=== PATIENT | female | born 1995 | race Caucasian/White ===

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

== ENCOUNTER 2017-12-10 20:06 | Inpatient (IN) ==
[2017-12-10] MEDS ORDERED: Naloxone 0.4 MG/ML INJ IVP ONE (21:19)
[2017-12-10] MEDS ORDERED: Td (TENIVAC) Vaccine 0.5 ML VIAL IM ONE (21:21)
[2017-12-10] MEDS ORDERED: 0.9 % Sodium Chloride 1,000 ML IVC ONE (21:21)
[2017-12-10 22:03] LABS: Basophils # 0.1 K/mcL (0.0-0.2); Basophils % 0.5 %; Eosinophils # 0.2 K/mcL (0.0-0.6); Eosinophils % 2.2 %; Hematocrit 41.7 % (35.3-44.9); Immature Granulocytes % 0.3 % (0-4); Lymphocytes # 2.9 K/mcL (0.6-4.6); Lymphocytes % 31.1 %; Mean Corpuscular HGB Conc 33.6 g/dL (31.6-35.5); Mean Corpuscular Hemoglobin 29.8 pg (28.0-33.3); Mean Corpuscular Volume 88.7 fL (83.0-100.0); Mean Platelet Volume 10.3 fL (9.4-12.4); Monocytes # 0.7 K/mcL (0.0-1.3); Monocytes % 7.8 %; Neutrophils # 5.4 K/mcL (1.6-8.9); Platelet Count 253 K/mcL (140-400); Red Cell Distribution Width 12.4 % (11.5-14.5); Segmented Neutrophils % 58.1 %
[2017-12-10 22:17] LABS: Bilirubin,Urine Small (Negative); Blood,Urine Large (Negative); Clarity,Urine Turbid (Clear); Color,Urine Dark Yellow (Yellow); Glucose,Urine (UA) Normal (Normal); Ketones,Urine Negative (Negative); Leukocyte Esterase,Urine Small (Negative); Nitrite,Urine Negative (Negative); Protein,Urine 30 mg/dL (Neg-Trace); Specific Gravity,Urine 1.025 (1.010-1.025); Urobilinogen,Urine Normal (Normal)
[2017-12-10 22:19] LABS: Amphetamine Screen,Urine Positive ng/mL (Cutoff=1000); Bacteria,Urine Many per hpf (None-Few); Barbiturate Screen,Urine Negative ng/mL (Cutoff=200); Benzodiazepines Screen,Urine Positive ng/mL (Cutoff=200); Cannabinoid Screen,Urine Negative ng/mL (Cutoff = 50); Cocaine Screen,Urine Positive ng/mL (Cutoff= 300); Opiate Screen,Urine Negative ng/mL (Cutoff=300); Phencyclidine Screen,Urine Negative ng/mL (Cutoff=25); Squamous Epithelial Cell,Urine Many per lpf (None-Few); WBC,Urine 30-50 per hpf (0-3)
[2017-12-10 22:21] LABS: Acetaminophen < 1.0 mcg/mL (10-30); Ethanol < 10 mg/dL (0-10); Salicylate < 5.0 mg/dL (15.0-30.0)
[2017-12-10 22:26] LABS: Alanine Aminotransferase 9 Units/L (7-52); Albumin/Globulin Ratio 1.9 (1.1-2.2); Alkaline Phosphatase 100 Units/L (34-104); Aspartate Amino Transferase 20 Units/L (13-39); BUN/Creatinine Ratio 14 (6-26); Bilirubin,Direct 0.1 mg/dL (0.0-0.2); Bilirubin,Indirect 0.3 mg/dL (0.0-1.2); Bilirubin,Total 0.4 mg/dL (0.3-1.0); Blood Urea Nitrogen 11 mg/dL (6-20); Calcium 9.9 mg/dL (8.6-10.3); Carbon Dioxide 28 mEq/L (23-29); Chloride 104 mEq/L (98-107); Globulin 2.7 g/dL (2.4-3.5); Glucose 103 mg/dL (70-105); Osmolality,Calculated 288 (280-300); Potassium 3.4 mEq/L (3.5-5.1); Sodium 139 mEq/L (136-145); Total Protein 7.7 g/dL (6.4-8.9); eGFR For African Americans > 60 (> 60); eGFR For Non-African Americans > 60 (> 60)
[2017-12-10 22:32] LABS: Hyaline Casts,Urine Few per lpf (None-Few)
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
[2017-12-11] MEDS ORDERED: cefTRIAXone 1,000 MG in Water for inj. (sterile) 20 ML 10 ML IVP STA (00:40)
[2017-12-11] MEDS ORDERED: Ondansetron 4 MG/2 ML VIAL IVP PRN (05:48)
[2017-12-11] MEDS ORDERED: Acetaminophen 325 MG TABLET PO PRN (05:48)
[2017-12-11] MEDS ORDERED: *HR* HYDROcodone/Acet 5/325 mg TABLET PO PRN (05:48)
[2017-12-11] MEDS ORDERED: Naloxone 0.4 MG/ML INJ IVP PRN (05:48)
--- NOTE | 2017-12-11 05:58 | Internal Med History&Physical ---
Date of Encounter: 12/11/17 Time of Encounter: 04:30 Assessment and Plan (1) Acute encephalopathy Current visit: Yes Status: Acute Admit the patient into telemetry she does have acute delirium due to toxic encephalopathy with the polysubstance abuse her urine drug screen came back as positive for cocaine, Benzo's and amphetamine at this point we will put her on telemetry IV hydration strict NPO consult psych in AM social media marketing analyst consulted she is an high-risk patient with all the substance abuse/intoxication, definitely need very close monitoring since patient is high risk for respiratory failure (2) Substance abuse Current visit: Yes Status: Acute (3) Altered mental status Current visit: Yes Status: Acute Qualifiers: Altered mental status type: delirium Qualified Code(s): R41.0 - Disorientation, unspecified (4) UTI (urinary tract infection) Current visit: Yes Status: Acute Reviewed UA - abnormal will start her on Rocephin Qualifiers: Urinary tract infection type: acute cystitis Qualified Code(s): N30.00 - Acute cystitis without hematuria (5) Bipolar disorder Current visit: No Status: Chronic Qualifiers: Active/Remission status: in partial remission Most recent bipolar episode type: depressed Qualified Code(s): F31.75 - Bipolar disorder, in partial remission, most recent episode depressed Internal Medicine - H&P: HPI Chief complaint: Acute delirium Admitted From: Emergency Dept Plans for Post Hospital Care: Home History of present illness: Ms. Brito is a 22 year old female with known PMH of substance abuse, Bipolar, Depression pt was brought into ER by EMS for evaluation of altered mental status. Pt had further evaluation done in the ER, pt UDS came back as positive for Amphetamine, Benzo and Cocaine. Pt also have contusions to the right eye and face. The patient has old bruising throughout her arms and legs and abdomen. Pt is currently sleepy and barely arousable, not providing me any information here on the floor. All the information I have here is reviewed her chart from ER , and talking to ER staff as well as our floor staff. Past Med Surg Social Fam HX - Past Medical History Medical history: no medical history, other Psychiatric history: previous psychiatric hospitalization - Past Surgical History Surgical History: other, appendectomy - Social History Smoking Status: Current every day smoker Smokeless Tobacco Status: No Alcohol use: rarely, recent Drug use: marijuana, other - Additional Family History Additional family history: Unable to obtain due to patient's altered mental status Internal Medicine - H&P: Meds Benztropine [Cogentin] 0.5 mg PO HS #30 tab 07/05/17 [Rx] CarBAMazepine XR [Tegretol Xr] 400 mg PO Q12H #60 07/05/17 [Rx] Citalopram [CeleXA] 30 mg PO DAILY #45 tab 07/05/17 [Rx] risperiDONE [RisperDAL] 2 mg PO HS #60 tab 07/05/17 [Rx] Cephalexin [Keflex] 500 mg PO BID #14 capsule 09/28/17 [Rx] 3 Allergy/AdvReac Type Severity Reaction Status Date / Time No Known Allergies Allergy Verified 09/28/17 16:16 All Systems PM: A 10-system review of systems was performed and is negative for pertinent findings except as documented above in the HPI. Review of systems: All the systems are reviewed everything is benign except the systems and symptoms I mentioned in the history of present illness Unable to perform thorough ROS due to her altered mental status. - Constitutional Vitals: Temp Pulse Resp BP Pulse Ox 98.5 F 89 14 95/60 100 12/11/17 03:25 12/11/17 03:25 12/11/17 03:25 12/11/17 03:25 12/11/17 03:25 General appearance: Absent: cooperative, answers questions appropriately Exam: Sleepy arousal with verbal stimuli however falling asleep right away - Head Additional comments: She does have a small laceration over her right forehead and right upper eyelid with some contusion around it - Neck Neck exam general surgery: Present: supple - Respiratory Respiratory exam: Present: decreased breath sounds. Absent: rales, respiratory distress, rhonchi, wheezes - Cardiovascular Cardiovascular exam: Present: RRR, +S1, +S2. Absent: diastolic murmur, gallop, rubs, systolic murmur - GI/Abdominal GI/Abdominal exam: Present: normal bowel sounds, soft. Absent: rebound, rigid, tenderness - Extremities Exam Extremities exam: Absent: calf tenderness, pedal edema, tenderness Additional comments: She does have some old bruise bennett on her both arms as well as legs - Back Exam Back exam: Absent: CVA tenderness (L), CVA tenderness (R) - Neurological Exam Neurological exam: Present: altered Additional comments: Sleepy... Unable to perform a thorough neurological examination due to her altered mental status - Psychiatric Additional comments: Unable to perform Internal Med - H&P Results - Labs CBC & Chem 7: 12/10/17 21:48 12/10/17 21:48
[2017-12-11] MEDS ORDERED: 0.9 % Sodium Chloride 1,000 ML IVC SCH (06:00)
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
--- NOTE | 2017-12-11 18:33 | Electrocardiograph Report ---
[address] [address] Test Date: 2017-12-10 Pat Name: Debbie Brito Department: 102 Room: 3A11 Gender: F [employer] Dist[employer]: [employer] : 1995 Requested By: Vimal Cantu Order Number: [id number] Reading MD: Natalya Gonzales Measurements Intervals [place] Rate: 93 P: 59 [place]: 123 QRS: 62 QRSD: 94 T: 41 QT: 352 QTc: 403 Interpretive Statements SINUS RHYTHM Electronically Signed On 12-11-2017 18:31:41 EST by Natalya Gonzales
[2017-12-12] MEDS ORDERED: cefTRIAXone 1,000 MG in Water for inj. (sterile) 20 ML 10 ML IVP SCH (01:00)
[2017-12-12 07:05] LABS: BUN/Creatinine Ratio 14 (6-26); Blood Urea Nitrogen 10 mg/dL (6-20); Calcium 8.7 mg/dL (8.6-10.3); Carbon Dioxide 26 mEq/L (23-29); Chloride 108 mEq/L (98-107); Glucose 99 mg/dL (70-105); Osmolality,Calculated 285 (280-300); Potassium 4.1 mEq/L (3.5-5.1); Sodium 138 mEq/L (136-145); eGFR For African Americans > 60 (> 60); eGFR For Non-African Americans > 60 (> 60)
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
[2017-12-12] MEDS ORDERED: FLUARIX QUAD 2017-18 36MOS UP/PF 0.5 ML SYRINGE IM ONE (11:24)
--- NOTE | 2017-12-12 12:51 | Consult Note ---
Date of Encounter: 12/12/17 Time of Encounter: 12:00 Assessment & Recommendation (1) Other recurrent depressive disorders Current visit: Yes Status: Acute (2) Suicide attempt Current visit: Yes Status: Acute Assessment & Recommendation: admit involutnary 1a History of Present Illness Patient: known to practice within the last 3 years Requesting Physician: Diego Lazaro MD Reason for consult: recent overdose, sedation History of present illness: Ms. Brito is a 22 year old female The patient is known to our service and has previous discharges in 2016 both in November and June. In the diagnoses these include major depression recurrent and bipolar depression. 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 She has difficulties and committing to treatment and treatment plans. And has been noncompliant with some treatments. The patient has a risk of overdose if released from the hospital. I went to talk to her about admission to 1 and which she is familiar with. She declined. The nurse and I went to wake her up to try and encourage her to go to one [facility] again she declined. I completed paperwork for emergency hospitalization on 1A today 12/12/2017 CC: Diego Lazaro MD Past Med Surg Social Fam HX - Past Medical History Medical history: no medical history, other - Past Surgical History Surgical History: other, appendectomy - Social History Smoking Status: Current every day smoker Smokeless Tobacco Status: No Alcohol use: rarely, recent Drug use: marijuana, other Medications & Allergies No Known Home Drugs 12/11/17 [History] 3 Allergy/AdvReac Type Severity Reaction Status Date / Time No Known Allergies Allergy Verified 09/28/17 16:16 Review of Systems ROS unobtainable: due to patient condition Mental Status Exam Patient orientation: Yes Person, Yes Time, Yes Place Level of alertness: Sedated, Responds to painful stimuli Patient appearance: Unkempt Behavior: withdrawn Psychomotor activity: Slowed Eye contact: Avoids Eye Contact Mood description: Depressed Affect description: flat Speech pattern: Slowed, Garbled Speech volume: Soft/Quiet Thought process: Slowed Thinking Thought content: Yes Suicidal ideation Patient reliability: Not Reliable Historian Intelligence estimate: Below Average Judgment: Poor Insight: None Results - Vital Signs Vital signs: Temp Pulse Resp BP Pulse Ox 98.6 F 97 15 105/62 96 12/12/17 04:18 12/12/17 04:18 12/12/17 04:18 12/12/17 04:18 12/12/17 04:18 - Labs Labs: Laboratory Last Values WBC 9.2 K/mcL (4.3-11.1) 12/10/17 21:48 RBC 4.70 M/mcL (3.82-4.97) 12/10/17 21:48 Hgb 14.0 g/dL (11.5-15.4) 12/10/17 21:48 Hct 41.7 % (35.3-44.9) 12/10/17 21:48 MCV 88.7 fL (83.0-100.0) 12/10/17 21:48 MCH 29.8 pg (28.0-33.3) 12/10/17 21:48 MCHC 33.6 g/dL (31.6-35.5) 12/10/17 21:48 RDW 12.4 % (11.5-14.5) 12/10/17 21:48 Plt Count 253 K/mcL (140-400) 12/10/17 21:48 MPV 10.3 fL (9.4-12.4) 12/10/17 21:48 Immature Gran % 0.3 % (0-4) 12/10/17 21:48 Seg Neutrophils % 58.1 % 12/10/17 21:48 Lymphocytes % 31.1 % 12/10/17 21:48 Monocytes % 7.8 % 12/10/17 21:48 Eosinophils % 2.2 % 12/10/17 21:48 Basophils % 0.5 % 12/10/17 21:48 Neutrophils # 5.4 K/mcL (1.6-8.9) 12/10/17 21:48 Lymphocytes # 2.9 K/mcL (0.6-4.6) 12/10/17 21:48 Monocytes # 0.7 K/mcL (0.0-1.3) 12/10/17 21:48 Eosinophils # 0.2 K/mcL (0.0-0.6) 12/10/17 21:48 Basophils # 0.1 K/mcL (0.0-0.2) 12/10/17 21:48 Sodium 138 mEq/L (136-145) 12/12/17 06:31 Potassium 4.1 mEq/L (3.5-5.1) 12/12/17 06:31 Chloride 108 mEq/L (98-107) H 12/12/17 06:31 Carbon Dioxide 26 mEq/L (23-29) 12/12/17 06:31 BUN 10 mg/dL (6-20) 12/12/17 06:31 Creatinine 0.73 mg/dL (0.60-1.20) 12/12/17 06:31 Est GFR ( Amer) > 60 (> 60) 12/12/17 06:31 Est GFR (Non-Af Amer) > 60 (> 60) 12/12/17 06:31 BUN/Creatinine Ratio 14 (6-26) 12/12/17 06:31 Glucose 99 mg/dL (70-105) 12/12/17 06:31 POC Glucose 97 (58-89) H 12/11/17 06:37 Calculated Osmolality 285 (280-300) 12/12/17 06:31 Calcium 8.7 mg/dL (8.6-10.3) 12/12/17 06:31 Magnesium 2.0 mg/dL (1.6-2.6) 12/12/17 06:31 Total Bilirubin 0.4 mg/dL (0.3-1.0) 12/10/17 21:48 Direct Bilirubin 0.1 mg/dL (0.0-0.2) 12/10/17 21:48 Indirect Bilirubin 0.3 mg/dL (0.0-1.2) 12/10/17 21:48 AST 20 Units/L (13-39) 12/10/17 21:48 ALT 9 Units/L (7-52) 12/10/17 21:48 Alkaline Phosphatase 100 Units/L (34-104) 12/10/17 21:48 Serum Total Protein 7.7 g/dL (6.4-8.9) 12/10/17 21:48 Albumin 5.0 g/dL (3.5-5.7) 12/10/17 21:48 Globulin 2.7 g/dL (2.4-3.5) 12/10/17 21:48 Albumin/Globulin Ratio 1.9 (1.1-2.2) 12/10/17 21:48 Urine Color Dark Yellow (Yellow) 12/10/17 22:04 Urine Clarity Turbid (Clear) A 12/10/17 22:04 Urine pH 6.0 pH Units (5.0-8.0) 12/10/17 22:04 Ur Specific [place] 1.025 (1.010-1.025) 12/10/17 22:04 Urine Protein 30 mg/dL (Neg-Trace) H 12/10/17 22:04 Urine Glucose (UA) Normal mg/dL (Normal) 12/10/17 22:04 Urine Ketones Negative mg/dL (Negative) 12/10/17 22:04 Urine Blood Large (Negative) H 12/10/17 22:04 Urine Nitrite Negative (Negative) 12/10/17: Urine Bilirubin Small (Negative) H 12/10/17 22:04 Urine Urobilinogen Normal mg/dL (Normal) 12/10/17 22:04 Ur Leukocyte Esterase Small (Negative) H 12/10/17 22:04 Urine Microscopic RBC 3-5 per hpf (0-3) H 12/10/17 22:04 Urine Microscopic WBC 30-50 per hpf (0-3) H 12/10/17 22:04 Ur Squamous Epith Cells Many per lpf (None-Few) H 12/10/17 22:04 Urine Bacteria Many per hpf (None-Few) H 12/10/17 22:04 Hyaline Casts Few per lpf (None-Few) 12/10/17 22:04 Urine Test Negative (Negative) 12/10/17 22:04 Salicylates < 5.0 mg/dL (15.0-30.0) L 12/10/17 21:48 Urine Opiates Screen Negative ng/mL (Syhzbm=158) 12/10/17 22:04 Acetaminophen < 1.0 mcg/mL (10-30) L 12/10/17 21:48 Ur Barbiturates Screen Negative ng/mL (Hfzzvk=563) 12/10/17 22: Ur Phencyclidine Scrn Negative ng/mL (Cutoff=25) 12/10/17 22:04 Ur Amphetamines Screen Positive ng/mL (Lhkrex=6576) H 12/10/17 22:04 U Benzodiazepines Scrn Positive ng/mL (Tukhsq=572) H 12/10/17 22:04 Urine Cocaine Screen Positive ng/mL (Cutoff= 300) H 12/10/17 22:04 U Marijuana (THC) Screen Negative ng/mL (Cutoff = 50) 12/10/17 22:04 Ethyl Alcohol < 10 mg/dL (0-10) 12/10/17 21:48 Consult Discharge Plan - Plan Instructions: Influenza Virus Vaccine (Injection), Urinary Tract Infection in Women (DC), Benzodiazepine Abuse (DC) Additional Instructions: Follow-up with your primary care provider within one week of discharge you do not have a primary care provider, you may establish at the residency clinic patient will be transferred to the psychiatric unit at [facility] on 1A patient is medically clear for discharge to psychiatric inpatient unit, further management per psychiatry. Referrals: NONE,PCP [Primary Care Provider] -
[2017-12-12 19:17] VITALS: BP 139/90
== END 2017-12-12 22:55 | disposition home or self-care (01) | DRG 52 ==
LOC: EMEROO 20:06 → 3ANU 20:06
PROVIDERS: ADMIT Internal Medicine; ATTEND Internal Medicine

== ENCOUNTER 2017-12-12 20:25 | Inpatient (IN) ==
[2017-12-12] MEDS ORDERED: Mag Hydrox/Al Hydrox/Simeth 30 ML UDC PO PRN (23:21)
[2017-12-12] MEDS ORDERED: *HR* LORazepam 1 MG TABLET PO PRN (23:21)
[2017-12-12] MEDS ORDERED: MOM Conc 10 ML UD.LIQ PO PRN (23:21)
[2017-12-12] MEDS ORDERED: Nicotine 2 MG GUM BC PRN (23:21)
[2017-12-12] MEDS ORDERED: Haloperidol Lactate 5 MG/ML VIAL IM PRN (23:21)
[2017-12-12] MEDS ORDERED: *HR* LORazepam 2 MG/ML VIAL IM PRN (23:21)
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
--- NOTE | 2017-12-14 15:11 | Psychiatry Progress Note ---
Date of Encounter: 12/14/17 Time of Encounter: 14:15 Subjective Interval history: She remains a very good historian. Offering few complaints or plans for future. The patient's activity is reduced. Her speech is reduced. I spoke to her during lunch to get her up after lunch 4 to come to the office but she was reluctant to see occasional distal dyskinetic movements speech is garbled and minimal. I reviewed the head CT. It has been read as normal although the intracardiac distance appears to be greater than expected on several sections of the head CT. I have discussed with referring clinician's opinion [employer] F the patient is relocated Richie Sanchez could follow her for her special needs. Objective: Exam Patient orientation: Yes Person, Yes Time, Yes Place, Yes Circumstance Level of alertness: Alert, Follows commands Patient appearance: Unkempt Behavior: cooperative Psychomotor activity: Slowed Eye contact: Minimal Contact Mood description: Depressed Affect description: dysphoric Speech pattern: Garbled Speech volume: Whispering Thought process: [place], Slowed Thinking Thought content: Yes Poverty of Content Judgment: Limited Insight: Minimal Results - Vital Signs Vital Signs: Temp Pulse Resp BP 98.4 F 96 14 116/82 12/14/17 09:00 12/14/17 09:00 12/14/17 09:00 12/14/17 09:00 Assessment and Plan (1) Other recurrent depressive disorders Current visit: No Status: Acute Plan: Continue hospitalization, Close observation, Suicide Precautions per unit protocol, Encourage participation in unit milieu Risks, benefits, side effects , alternatives discussed w/pt: Yes Patient agreeable to treatment: Yes (2) Suicidal thoughts Current visit: No Status: Acute Plan: Suicide Precautions per unit protocol, Group Therapy, Monitor sleep, Monitor appetite Risks, benefits, side effects, alternatives discussed w/pt: Yes Patient agreeable to treatment: Yes (3) Methamphetamine abuse Current visit: No Status: Acute Plan: Continue hospitalization, Monitor appetite Risks, benefits, side effects , alternatives discussed w/pt: Yes Patient agreeable to treatment: Yes Consult Discharge Plan - Plan Referrals: NONE,PCP [Primary Care Provider] -
[2017-12-14] MEDS: traZODone 50 MG TABLET PO PRN (21:30)
[2017-12-14] MEDS: hydrOXYzine pamoate 25 MG CAPSULE PO PRN (21:31)
[2017-12-14] MEDS: Ibuprofen 400 MG TABLET PO PRN (21:34)
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
[2017-12-15] MEDS: hydrOXYzine pamoate 25 MG CAPSULE PO PRN (21:07)
[2017-12-15] MEDS: traZODone 50 MG TABLET PO PRN (21:07)
--- NOTE | 2017-12-16 14:30 | Psychiatry Progress Note ---
Date of Encounter: 12/16/17 Time of Encounter: 14:26 Subjective Interval history: Refusing to speak with this policy writer typist again today. Will not get out of bed. Will not maintain eye contact. Will not respond to staff. Comes out for meal trays. Flirts with male peers but uses her body to do so. Speech is almost unintelligble. No meds have been started yet. Likely depressed given situation but unclear what is fully going on with her. Human trafficking coordinator to try and assess her again as client refused any contact the first time. Review of Systems Constitutional: Denies: fever, chills, weakness, weight change Eyes: Denies: eye pain, vision change Ears, Nose, Throat: Denies: ear pain, throat pain, dental pain, hearing loss, congestion Cardiovascular: Denies: chest pain, palpitations, dyspnea on exertion Respiratory: Denies: cough, dyspnea, wheezes Gastrointestinal: Denies: abdominal pain, nausea, vomiting, diarrhea, constipation Musculoskeletal: Denies: joint swelling, joint pain Neurological: Denies: headache, weakness, numbness, memory loss Objective: Exam Patient orientation: Yes Other Level of alertness: Other Patient appearance: Unkempt, Disheveled Behavior: uncooperative Psychomotor activity: Normal Eye contact: Avoids Eye Contact Mood description: Other Affect description: blunted Speech pattern: Mumbled Speech volume: Soft/Quiet Thought process: [place] Thought content: Yes Suicidal ideation, No Homicidal ideation, No Overt delusions Perceptual disturbances: No Auditory hallucinations, No Visual hallucinations Judgment: Poor Insight: Minimal Results - Vital Signs Vital Signs: Temp Pulse Resp BP Pulse Ox 98.3 F 93 16 130/81 93 12/15/17 20:33 12/15/17 20:33 12/15/17 20:33 12/15/17 20:33 12/14/17 20:05 Assessment and Plan (1) Depression Current visit: No Status: Chronic Plan: Continue hospitalization, Close observation, Suicide Precautions per unit protocol, Encourage participation in unit milieu, Group Therapy, Monitor sleep, Monitor appetite, Secure weapons Risks, benefits, side effects, alternatives discussed w/pt: Yes Patient agreeable to treatment: Yes Qualifiers: Depression Type: major depressive disorder Major depression recurrence: recurrent Active/Remission status: currently active Major depression episode severity: severe Psychotic features: without psychotic features Qualified Code(s): F33.2 - Major depressive disorder, recurrent severe without psychotic features (2) Methamphetamine abuse Current visit: No Status: Acute Plan: Continue hospitalization, Close observation, Suicide Precautions per unit protocol, Encourage participation in unit milieu, Group Therapy, Monitor sleep, Monitor appetite Risks, benefits, side effects, alternatives discussed w/pt: Yes Patient agreeable to treatment: Yes Consult Discharge Plan - Plan Referrals: NONE,PCP [Primary Care Provider] -
[2017-12-16] MEDS: traZODone 50 MG TABLET PO PRN (21:30)
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
[2017-12-17] MEDS: risperiDONE 0.25 MG TABLET PO SCH (20:32)
[2017-12-17] MEDS: traZODone 50 MG TABLET PO PRN (20:33)
[2017-12-18] MEDS: Ibuprofen 400 MG TABLET PO PRN (02:44)
[2017-12-18] MEDS: risperiDONE 0.25 MG TABLET PO SCH ×2 (08:47→21:00)
--- NOTE | 2017-12-18 15:55 | Psychiatry Progress Note ---
Date of Encounter: 12/18/17 Time of Encounter: 15:52 Subjective Interval history: Client is still psychotic. Client denies AH but she is actively responding to IS. Tolerating Risperdal so will increase dose. Client is much brighter. Smiling now. Out of room more. Eating and sleeping well. Spoke with Human Trafficking screening representative last night. Client signed consent form to test for [place] today. Suspect she has it. An accurate diagnosis may qualify her for services that she needs. Client is wanting to go to a family friend's home but this discharge plan has been done in the past with limited success. Objective: Exam Patient orientation: Yes Person, Yes Place Level of alertness: Alert Patient appearance: Unkempt, Disheveled Behavior: calm, cooperative Psychomotor activity: Abnormal movements Eye contact: Maintains Eye Contact Mood description: Euthymic/stable Affect description: congruent with mood Speech pattern: Mumbled Speech volume: Soft/Quiet Thought process: [place] Thought content: No Suicidal ideation, No Homicidal ideation Perceptual disturbances: Yes Reacting to internal stimuli Judgment: Limited Insight: Minimal Results - Vital Signs Vital Signs: Temp Pulse Resp BP Pulse Ox 98.6 F 96 16 117/64 93 12/18/17 09:00 12/18/17 09:00 12/18/17 09:00 12/18/17 09:00 12/14/17 20:05 Assessment and Plan (1) Methamphetamine abuse Current visit: No Status: Acute Plan: Continue hospitalization, Close observation, Suicide Precautions per unit protocol, Encourage participation in unit milieu, Group Therapy, Monitor sleep, Monitor appetite Risks, benefits, side effects, alternatives discussed w/pt: Yes Patient agreeable to treatment: Yes (2) Substance-induced psychotic disorder Current visit: Yes Status: Acute Plan: Continue hospitalization, Close observation, Suicide Precautions per unit protocol, Encourage participation in unit milieu, Group Therapy, Monitor sleep, Monitor appetite Risks, benefits, side effects, alternatives discussed w/pt: Yes Patient agreeable to treatment: Yes Consult Discharge Plan - Plan Referrals: NONE,PCP [Primary Care Provider] -
[2017-12-19] MEDS: Ibuprofen 400 MG TABLET PO PRN (00:54)
[2017-12-19] MEDS: risperiDONE 0.25 MG TABLET PO SCH (09:27)
--- NOTE | 2017-12-19 11:12 | Psychiatry Progress Note ---
Date of Encounter: 12/19/17 Time of Encounter: 11:07 Subjective Interval history: Far more pleasant and cooperative. Still psychotic but redirectable. Put on her roommate's sweater but cooperated with staff to return it. Eating and sleeping well. Actively responding to internal stimuli. Client denies AH to this remote mortgage underwriter but apparently admitted she was experiencing psychosis to Human Trafficking public health representative last night. They are still trying to assess her. Client is being more cooperative with them but she is difficult to get information from due to her speech impediment and psychosis. Client is tolerating the Risperdal. Will increase this slowly as it could cause some EPS , especially if she has [place]'s. Client did sign for the genetic testing so hopefully staff will have a better idea of her medical issues soon. Review of Systems Constitutional: Denies: fever, chills, weakness, weight change Eyes: Denies: eye pain, vision change Ears, Nose, Throat: Denies: ear pain, throat pain, dental pain, hearing loss, congestion Cardiovascular: Denies: chest pain, palpitations, dyspnea on exertion Respiratory: Denies: cough, dyspnea, wheezes Gastrointestinal: Denies: abdominal pain, nausea, vomiting, diarrhea, constipation Musculoskeletal: Denies: joint swelling, joint pain Neurological: Denies: headache, weakness, numbness, memory loss Objective: Exam Patient orientation: Yes Person, Yes Time, Yes Place Level of alertness: Alert Patient appearance: Unkempt, Disheveled Behavior: calm, cooperative Psychomotor activity: Abnormal movements Eye contact: Maintains Eye Contact Mood description: Euthymic/stable Affect description: congruent with mood Speech pattern: Mumbled Speech volume: Soft/Quiet Thought process: [place] Thought content: No Suicidal ideation, No Homicidal ideation Perceptual disturbances: Yes Reacting to internal stimuli, Yes Auditory hallucinations Judgment: Poor Insight: Minimal Results - Vital Signs Vital Signs: Temp Pulse Resp BP Pulse Ox 98.6 F 55 16 97/56 93 12/19/17 09:00 12/19/17 09:00 12/19/17 09:00 12/19/17 09:00 12/14/17 20:05 Assessment and Plan (1) Methamphetamine abuse Current visit: No Status: Acute Plan: Continue hospitalization, Close observation, Suicide Precautions per unit protocol, Encourage participation in unit milieu, Group Therapy, Monitor sleep, Monitor appetite Risks, benefits, side effects, alternatives discussed w/pt: Yes Patient agreeable to treatment: Yes (2) Substance-induced psychotic disorder Current visit: Yes Status: Acute Plan: Continue hospitalization, Close observation, Suicide Precautions per unit protocol, Encourage participation in unit milieu, Group Therapy, Monitor sleep, Monitor appetite Risks, benefits, side effects, alternatives discussed w/pt: Yes Patient agreeable to treatment: Yes Consult Discharge Plan - Plan Referrals: NONE,PCP [Primary Care Provider] -
[2017-12-19] MEDS: risperiDONE 1 MG TABLET PO SCH (20:17)
[2017-12-20] MEDS: risperiDONE 1 MG TABLET PO SCH ×2 (09:24→21:35)
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
[2017-12-20] MEDS: traZODone 50 MG TABLET PO PRN (21:35)
[2017-12-20] MEDS: hydrOXYzine pamoate 25 MG CAPSULE PO PRN (21:35)
[2017-12-21] MEDS: Ibuprofen 400 MG TABLET PO PRN (01:26)
[2017-12-21] MEDS: risperiDONE 1 MG TABLET PO SCH ×2 (10:08→21:36)
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
[2017-12-21 20:12] LABS: Huntington Disease Specimen WHOLE BLOOD
[2017-12-21] MEDS: hydrOXYzine pamoate 25 MG CAPSULE PO PRN (21:36)
[2017-12-21] MEDS: traZODone 50 MG TABLET PO PRN (21:36)
[2017-12-22] MEDS: risperiDONE 1 MG TABLET PO SCH ×2 (08:48→22:00)
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
[2017-12-23] MEDS: risperiDONE 1 MG TABLET PO SCH ×2 (09:56→20:43)
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
[2017-12-23 13:13] LABS: Huntington Disease Allele 1 50; Huntington Disease Allele 2 17
[2017-12-24] MEDS: Ibuprofen 400 MG TABLET PO PRN ×3 (00:05→20:22)
[2017-12-24] MEDS: risperiDONE 1 MG TABLET PO SCH ×2 (09:37→20:23)
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
[2017-12-24] MEDS: traZODone 50 MG TABLET PO PRN (20:23)
[2017-12-25] MEDS: risperiDONE 1 MG TABLET PO SCH ×2 (09:24→21:42)
--- NOTE | 2017-12-25 13:34 | Psychiatry Progress Note ---
Date of Encounter: 12/25/17 Time of Encounter: 13:00 Subjective Interval history: Patient is slightly more talkative today. She states her mood is "okay." She does feel tired today. She does remain in her room most of the time. She has attempted to go to groups but has difficulty interacting and gaining benefit from these groups. Treatment team is reaching out to any family members that may be interested in pursuing guardianship to help the patient make medical decisions as she is unable to make her own at this time. She denies auditory or visual hallucinations but she does appear to be thought blocking or having at least slowed reaction to questions. Review of Systems Psychiatric: Reports: depression, anxiety, hopelessness, irritability Objective: Exam Patient orientation: Yes Person, Yes Place Level of alertness: Alert Patient appearance: Unkempt Behavior: guarded, withdrawn Psychomotor activity: Slowed Eye contact: Minimal Contact Mood description: Euthymic/stable Affect description: blunted Speech pattern: Slowed, Delayed Speech volume: Soft/Quiet Thought process: Thought Blocking, [place], Slowed Thinking Thought content: No Suicidal ideation, No Homicidal ideation Perceptual disturbances: Yes Reacting to internal stimuli (Possibly), No Auditory hallucinations, No Visual hallucinations Judgment: Poor Insight: None Results - Vital Signs Vital Signs: Temp Pulse Resp BP Pulse Ox 97.8 F 101 16 107/76 93 12/25/17 09:00 12/25/17 09:00 12/25/17 09:00 12/25/17 09:00 12/14/17 20:05 Assessment and Plan (1) Substance-induced psychotic disorder Current visit: Yes Status: Acute Plan: Continue hospitalization, Close observation, Suicide Precautions per unit protocol, Encourage participation in unit milieu, Group Therapy, Monitor sleep, Monitor appetite Additional Plan: Continue to monitor. Encourage positive coping strategies. Continue current medications. Risks, benefits, side effects, alternatives discussed w/pt: Yes Patient agreeable to treatment: Yes (2) Methamphetamine abuse Current visit: No Status: Acute Risks, benefits, side effects, alternatives discussed w/pt: Yes Patient agreeable to treatment: Yes Consult Discharge Plan - Plan Referrals: NONE,PCP [Primary Care Provider] -
[2017-12-25] MEDS: Ibuprofen 400 MG TABLET PO PRN (17:16)
[2017-12-25] MEDS: traZODone 50 MG TABLET PO PRN (21:42)
[2017-12-26] MEDS: Ibuprofen 400 MG TABLET PO PRN ×2 (06:08→17:30)
[2017-12-26] MEDS: risperiDONE 1 MG TABLET PO SCH ×2 (08:40→20:58)
--- NOTE | 2017-12-26 16:42 | Psychiatry Progress Note ---
Date of Encounter: 12/26/17 Time of Encounter: 11:50 Subjective Interval history: Patient seen today for follow-up. She is slightly more reactive to questions and states that she did see her Aunt yesterday. She states that her aunt told her that she may be up to go home with her. She does seem happier although she smiles somewhat inappropriately throughout the interview. Minimally communicative beyond this. She does remain to her room and withdrawn most of the time. She denies SI or HI today. Not actively responding to any internal stimuli at the time of the interview. Review of Systems Psychiatric: Reports: depression, anxiety, auditory hallucinations, confusion, irritability, mood swings Objective: Exam Patient orientation: Yes Person, Yes Place Level of alertness: Alert Patient appearance: Appropriate Behavior: calm, guarded Psychomotor activity: Slowed Eye contact: Intense Contact Mood description: Euthymic/stable Affect description: incongruent with mood, other (Smiles inappropriately) Speech pattern: Slowed, Delayed Speech volume: Soft/Quiet Thought process: [place], Slowed Thinking Thought content: No Suicidal ideation, No Homicidal ideation Perceptual disturbances: No Reacting to internal stimuli, No Auditory hallucinations, No Visual hallucinations Judgment: Poor Insight: None Results - Vital Signs Vital Signs: Temp Pulse Resp BP Pulse Ox 97.8 F 98 18 108/68 93 12/26/17 09:00 12/26/17 09:00 12/26/17 09:00 12/26/17 09:00 12/14/17 20:05 Assessment and Plan (1) Substance-induced psychotic disorder Current visit: Yes Status: Acute Plan: Continue hospitalization, Close observation, Suicide Precautions per unit protocol, Encourage participation in unit milieu, Group Therapy, Monitor sleep, Monitor appetite Additional Plan: Continue to monitor. Patient may be responding somewhat to internal stimuli. At this point she will not be able to function on her own outside of the hospital. We will continue to monitor and attempt to help her obtain guardianship and appropriate outpatient disposition. Risks, benefits, side effects, alternatives discussed w/pt: Yes Patient agreeable to treatment: Yes (2) Methamphetamine abuse Current visit: No Status: Acute Risks, benefits, side effects, alternatives discussed w/pt: Yes Patient agreeable to treatment: Yes Consult Discharge Plan - Plan Referrals: NONE,PCP [Primary Care Provider] -
[2017-12-26] MEDS: traZODone 50 MG TABLET PO PRN (20:58)
[2017-12-27] MEDS: Ibuprofen 400 MG TABLET PO PRN ×2 (07:13→18:22)
[2017-12-27] MEDS: risperiDONE 1 MG TABLET PO SCH ×2 (08:28→20:39)
--- NOTE | 2017-12-27 09:50 | Psychiatry Progress Note ---
Date of Encounter: 12/27/17 Time of Encounter: 09:35 Subjective Interval history: Patient seen today for follow-up. She reports that she is "okay." Not very talkative this morning. Denies problems with any medicine and states she will talk to family about possibly going to stay there. She does not appear to responding to internal stimuli today. Level of functioning is still very low. Patient willing to complete Mini-Mental status exam today. Review of Systems Psychiatric: Reports: depression, anxiety, auditory hallucinations, confusion, memory loss, irritability, mood swings Objective: Exam Patient orientation: Yes Person, Yes Place Level of alertness: Alert Patient appearance: Appropriate Behavior: calm, guarded Psychomotor activity: Slowed Eye contact: Intense Contact Mood description: Euthymic/stable Affect description: inappropriate to situation, incongruent with mood, other ( smiles inappropriately) Speech pattern: [place] Speech volume: Normal Thought process: [place], Slowed Thinking Thought content: No Suicidal ideation, No Homicidal ideation Perceptual disturbances: No Reacting to internal stimuli Judgment: Poor Insight: None Results - Vital Signs Vital Signs: Temp Pulse Resp BP Pulse Ox 98.4 F 91 16 119/73 93 12/27/17 09:00 12/27/17 09:00 12/27/17 09:00 12/27/17 09:00 12/14/17 20:05 Assessment and Plan (1) Substance-induced psychotic disorder Current visit: Yes Status: Acute Risks, benefits, side effects, alternatives discussed w/pt: Yes Patient agreeable to treatment: Yes (2) Methamphetamine abuse Current visit: No Status: Acute Risks, benefits, side effects, alternatives discussed w/pt: Yes Patient agreeable to treatment: Yes (3) [place]'s disease Current visit: Yes Status: Acute Plan: Continue hospitalization, Close observation Additional Plan: MMSE score of 23 Mild cognitive impairment. Consult Discharge Plan - Plan Referrals: NONE,PCP [Primary Care Provider] - Mini-Mental Status Exam - Orientation What year is it: Correct What season is it: Correct What month is it: Incorrect What day of the week is it: Correct What is the date today: Incorrect Name this place (building or hospital): Correct What floor are you on now: Correct What country are you in: Correct What state are you in: Correct What city are you in: Correct - Registration Name ojbect 1 (ball) and have patient repeat it: Correct Name object 2 (flag) and have patient repeat it: Correct Name object 3 (tree) and have patient repeat it: Correct - Attention and Calculation Did patient get letter D correct: Correct Did patient get letter L correct: Incorrect Did patient get letter R correct: Correct Did patient get letter O correct: Incorrect Did patient get letter W correct: Incorrect - Language Show wristwatch. Ask patient what it is called: Correct Show pencil. Ask patient what it is called: Correct Ask patient to repeat NO IFS, ANDS OR BUTS (1 trial only): Correct Put it in your non-dominant hand: Correct Fold it in half: Incorrect Put it on the floor: Correct Ask patient to read and perform task on paper (CLOSE YOUR EY: Correct Ask patient to write a sentence on a piece of paper: Incorrect - Recall Does patient recall the name of object 1: Correct Does patient recall the name of object 2: Correct Does patient recall the name of object 3: Correct - Construction Ask patient to copy design of 5-sided interlocking figures: Correct - Total Score - Mini-Mental Status Total Score - Mini Mental Status: 23
[2017-12-27] MEDS: traZODone 50 MG TABLET PO PRN (20:39)
[2017-12-28] MEDS: Ibuprofen 400 MG TABLET PO PRN ×2 (05:37→17:53)
[2017-12-28] MEDS: risperiDONE 1 MG TABLET PO SCH ×2 (09:14→20:43)
--- NOTE | 2017-12-28 13:35 | Psychiatry Progress Note ---
Date of Encounter: 12/28/17 Time of Encounter: 11:00 Subjective Interval history: Debbie is seen today for follow-up. She reports she slept pretty well. Continues to smile inappropriately throughout the interview. Some small twitching movements also noticed. Patient does not appear to be actively responding to internal stimuli. She denies suicidal ideation. She denies auditory or visual hallucinations. Review of Systems ROS unobtainable: due to patient condition (Secondary to the patient's cognitive functioning) Neurological: Reports: confusion, memory loss, abnormal gait Psychiatric: Reports: depression, anxiety, auditory hallucinations, confusion, memory loss, irritability, mood swings Objective: Exam Patient orientation: Yes Person, Yes Place Level of alertness: Alert Additional observations: Patient has a halting gait at times. Behavior: guarded Psychomotor activity: Slowed Eye contact: Intense Contact Mood description: Euthymic/stable Affect description: inappropriate to situation, incongruent with mood Speech pattern: Slowed, Stuttering Speech volume: Soft/Quiet Thought process: [place] Thought content: No Suicidal ideation, No Homicidal ideation Perceptual disturbances: No Auditory hallucinations, No Visual hallucinations Judgment: Poor Insight: None Results - Vital Signs Vital Signs: Temp Pulse Resp BP Pulse Ox 98.2 F 101 16 138/70 93 12/28/17 09:00 12/28/17 09:00 12/28/17 09:00 12/28/17 09:00 12/14/17 20:05 Assessment and Plan (1) Substance-induced psychotic disorder Current visit: Yes Status: Acute Plan: Continue hospitalization, Close observation, Suicide Precautions per unit protocol, Encourage participation in unit milieu, Group Therapy, Monitor sleep, Monitor appetite Additional Plan: Continue to monitor. Continue current meds. Risks, benefits, side effects, alternatives discussed w/pt: Yes Patient agreeable to treatment: Yes (2) Methamphetamine abuse Current visit: No Status: Acute Risks, benefits, side effects, alternatives discussed w/pt: Yes Patient agreeable to treatment: Yes (3) [place]'s disease Current visit: Yes Status: Acute Plan: Continue hospitalization Additional Plan: Patient is likely at baseline functioning level. We did initiate guardianship patient for work based on her current symptoms. Consult Discharge Plan - Plan Referrals: NONE,PCP [Primary Care Provider] -
[2017-12-29] MEDS: Ibuprofen 400 MG TABLET PO PRN ×2 (04:31→17:21)
[2017-12-29] MEDS: risperiDONE 1 MG TABLET PO SCH ×2 (09:22→21:07)
--- NOTE | 2017-12-29 11:14 | Psychiatry Progress Note ---
Date of Encounter: 12/29/17 Time of Encounter: 11:00 Subjective Interval history: Patient is known to me from her time of admission. This was 2017.. The patient was diagnosed with Panacea's disease. The patient was seen for a disability assessment yesterday. The patient's paternal aunt will seek legal guardianship. The patient says she gets along with her aunt she reports that she is doing well on the unit. The patient slept 7-1/2 hours. She has been attending some groups she is pleasant. Nonetheless she appears to be attending to internal stimuli. She did not request any changes in medication or treatment Review of Systems Psychiatric: Reports: depression, anxiety, confusion, memory loss, mood swings Objective: Exam Patient orientation: Yes Person, Yes Time, Yes Place, Yes Circumstance Level of alertness: Alert Patient appearance: Appropriate, Unkempt, Thin Behavior: cooperative, withdrawn Psychomotor activity: Abnormal movements Eye contact: Minimal Contact Mood description: Depressed Affect description: inappropriate to situation Speech pattern: Inappropriate to situation, Garbled, [place] Speech volume: Soft/Quiet Thought process: [place] Perceptual disturbances: Yes Reacting to internal stimuli, Yes Auditory hallucinations Judgment: Poor Insight: Minimal Results - Vital Signs Vital Signs: Temp Pulse Resp BP Pulse Ox 98.1 F 87 18 107/76 93 12/29/17 09:00 12/29/17 09:00 12/29/17 09:00 12/29/17 09:00 12/14/17 20:05 - Labs Labs: 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 This is a way to describe the caudate distance, and suggests ATROPHY of the caudate bilaterally Assessment and Plan (1) Other recurrent depressive disorders Current visit: No Status: Acute Risks, benefits, side effects, alternatives discussed w/pt: Yes Patient agreeable to treatment: Yes (2) Suicidal thoughts Current visit: No Status: Acute Risks, benefits, side effects, alternatives discussed w/pt: Yes Patient agreeable to treatment: Yes (3) Methamphetamine abuse Current visit: No Status: Acute Risks, benefits, side effects, alternatives discussed w/pt: Yes Patient agreeable to treatment: Yes (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 Current visit: Yes Status: Acute Plan: Continue hospitalization, Close observation, Suicide Precautions per unit protocol, Encourage participation in unit milieu, Group Therapy Risks, benefits, side effects, alternatives discussed w/pt: Yes Patient agreeable to treatment: Yes (5) Mild cognitive impairment Current visit: Yes Status: Acute Plan: Family/Supportive other meeting Risks, benefits, side effects, alternatives discussed w/pt: Yes Patient agreeable to treatment: Yes (6) Panacea's disease Current visit: Yes Status: Acute Plan: Close observation Risks, benefits, side effects, alternatives discussed w/pt: Yes Patient agreeable to treatment: Yes (7) Suicidal ideation Current visit: No Status: Acute Plan: Continue hospitalization, Close observation, Encourage participation in unit milieu, Group Therapy Risks, benefits, side effects, alternatives discussed w/pt: Yes Patient agreeable to treatment: Yes Consult Discharge Plan - Plan Referrals: NONE,PCP [Primary Care Provider] -
[2017-12-30] MEDS: Ibuprofen 400 MG TABLET PO PRN ×2 (03:27→17:16)
[2017-12-30] MEDS: risperiDONE 1 MG TABLET PO SCH ×2 (09:16→21:09)
--- NOTE | 2017-12-30 12:59 | Psychiatry Progress Note ---
Date of Encounter: 12/30/17 Time of Encounter: 13:00 Subjective Interval history: The patient has been on the unit. She slept 5 hours and may have slept in. She has clear speech in the morning and more garbled in the afternoon and evening. The patient has been interacting with others. Today she says that she is feels that she is getting along with others and that others are nice to her. I asked her specifically about hallucinations and delusions and she denied them. Nonetheless the staff see evidence of her attending to internal stimuli. She says that at times she thinks of something funny and starts to laugh. Her facial expressions do indicate that she is amused or smiling often at times incongruent with the social situation. I talked to her about the choreiform movements that she has. She is aware of these and I talked to her about treatment options these cannot be pursued at this time but could be considered at a later time Review of Systems Neurological: Reports: other Psychiatric: Reports: depression, anxiety, confusion, memory loss, mood swings Objective: Exam Patient orientation: Yes Person, Yes Time, Yes Place Level of alertness: Alert Patient appearance: Appropriate, Thin Behavior: anxious, guarded Psychomotor activity: Repetitive movements Eye contact: Maintains Eye Contact Mood description: Anxious Affect description: inappropriate to situation, incongruent with mood Speech pattern: Slurred Speech volume: Soft/Quiet Thought process: [place], Slowed Thinking Thought content: Yes Poverty of Content Perceptual disturbances: Yes Reacting to internal stimuli Judgment: Poor Insight: Minimal Results - Vital Signs Vital Signs: Temp Pulse Resp BP Pulse Ox 97.8 F 91 16 99/70 93 12/30/17 09:00 12/30/17 09:00 12/30/17 09:00 12/30/17 09:00 12/14/17 20:05 Assessment and Plan (1) Other recurrent depressive disorders Current visit: No Status: Acute Plan: Continue hospitalization, Close observation, Family/Supportive other meeting Risks, benefits, side effects, alternatives discussed w/pt: Yes Patient agreeable to treatment: Yes (2) Suicidal thoughts Current visit: No Status: Acute Plan: Continue hospitalization, Close observation, Encourage participation in unit milieu, Monitor sleep, Monitor appetite Risks, benefits, side effects, alternatives discussed w/pt: Yes Patient agreeable to treatment: Yes (3) Methamphetamine abuse Current visit: No Status: Acute Plan: Family/Supportive other meeting Risks, benefits, side effects, alternatives discussed w/pt: Yes Patient agreeable to treatment: Yes (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 Current visit: Yes Status: Acute Plan: Continue hospitalization, Close observation, Suicide Precautions per unit protocol, Encourage participation in unit milieu, Group Therapy, Monitor sleep, Family/Supportive other meeting Risks, benefits, side effects, alternatives discussed w/pt: Yes Patient agreeable to treatment: Yes (5) Mild cognitive impairment Current visit: Yes Status: Acute Plan: Family/Supportive other meeting Risks, benefits, side effects, alternatives discussed w/pt: Yes Patient agreeable to treatment: Yes (6) Lou's disease Current visit: Yes Status: Acute Plan: Continue hospitalization, Family/Supportive other meeting Risks, benefits, side effects, alternatives discussed w/pt: Yes Patient agreeable to treatment: Yes (7) Suicidal ideation Current visit: No Status: Chronic Plan: Suicide Precautions per unit protocol Risks, benefits, side effects, alternatives discussed w/pt: Yes Patient agreeable to treatment: Yes Consult Discharge Plan - Plan Referrals: NONE,PCP [Primary Care Provider] -
[2017-12-30] MEDS: traZODone 50 MG TABLET PO PRN (21:09)
[2017-12-31] MEDS: Ibuprofen 400 MG TABLET PO PRN ×2 (06:18→19:25)
[2017-12-31] MEDS: risperiDONE 1 MG TABLET PO SCH ×2 (09:32→21:31)
--- NOTE | 2017-12-31 14:07 | Psychiatry Progress Note ---
Date of Encounter: 12/31/17 Time of Encounter: 13:50 Subjective Interval history: 23 year old white female seen today , case d/w treatment team and chart reviewed , her tests for meka came positive, she has family history , her mother suffered from [place] and passed few months ago. she at present is pleasant , smiling inappropiately at times , she is preoccupied internally but denies auditory and visual hallucinations. she is tolerating risperdal well , denies side effects , no EPS noted . she has poor insight and judgement , needs structured enviornment and guardianship as her cognitive functions are impaired. Review of Systems Psychiatric: Reports: depression, anxiety, confusion, memory loss, mood swings Objective: Exam Patient orientation: Yes Person, Yes Place Level of alertness: Alert Patient appearance: Appropriate Behavior: cooperative Psychomotor activity: Slowed Eye contact: Minimal Contact Mood description: Euthymic/stable Affect description: constricted Speech pattern: Slowed Speech volume: Soft/Quiet Thought process: [place] Thought content: Yes Preoccupation, Yes Poverty of Content Judgment: Poor Insight: None Results - Vital Signs Vital Signs: Temp Pulse Resp BP Pulse Ox 97.8 F 88 16 109/71 93 12/31/17 09:00 12/31/17 09:00 12/31/17 09:00 12/31/17 09:00 12/14/17 20:05 Assessment and Plan (1) Mood disorder due to known physiological condition with depressive features Current visit: Yes Status: Acute Plan: Continue hospitalization, Close observation, Suicide Precautions per unit protocol, Encourage participation in unit milieu, Group Therapy, Monitor sleep, Monitor appetite, Family/Supportive other meeting Risks, benefits, side effects, alternatives discussed w/pt: Yes Patient agreeable to treatment: Yes (2) Substance abuse Current visit: No Status: Acute Plan: Continue hospitalization, Suicide Precautions per unit protocol, Group Therapy Risks, benefits, side effects, alternatives discussed w/pt: Yes Patient agreeable to treatment: Yes (3) [place]'s disease Current visit: Yes Status: Acute Plan: Continue hospitalization, Close observation, Suicide Precautions per unit protocol, Encourage participation in unit milieu, Group Therapy, Monitor sleep, Monitor appetite, Family/Supportive other meeting Risks, benefits, side effects, alternatives discussed w/pt: Yes Patient agreeable to treatment: Yes (4) Mild cognitive impairment Current visit: Yes Status: Acute Plan: Continue hospitalization, Close observation, Suicide Precautions per unit protocol, Encourage participation in unit milieu, Group Therapy, Monitor sleep, Monitor appetite, Family/Supportive other meeting Risks, benefits, side effects, alternatives discussed w/pt: Yes Patient agreeable to treatment: Yes Consult Discharge Plan - Plan Referrals: NONE,PCP [Primary Care Provider] -
[2018-01-01] MEDS: Ibuprofen 400 MG TABLET PO PRN ×2 (01:04→18:29)
[2018-01-01] MEDS: risperiDONE 1 MG TABLET PO SCH ×2 (09:19→20:52)
--- NOTE | 2018-01-01 11:50 | Psychiatry Progress Note ---
Date of Encounter: 01/01/18 Time of Encounter: 11:35 Subjective Interval history: Patient seen today , case d/w staff , she is interacting more, states doing good , slept good, smiling a lot and looking around the room , distracted, speech is garbled and short , she at present seems to be less internally preoccupied . will continue stabilization and will start discharge planning. Review of Systems Psychiatric: Reports: depression, anxiety, confusion, memory loss, mood swings Objective: Exam Patient orientation: Yes Person, Yes Time, Yes Place Level of alertness: Alert Patient appearance: Appropriate Behavior: cooperative Psychomotor activity: Normal Eye contact: Minimal Contact Mood description: Euthymic/stable Affect description: constricted Speech pattern: Slowed, Garbled Speech volume: Soft/Quiet Thought content: Yes Poverty of Content Perceptual disturbances: Yes Reacting to internal stimuli Judgment: Poor Insight: None Results - Vital Signs Vital Signs: Temp Pulse Resp BP Pulse Ox 97.6 F 93 16 104/63 93 01/01/18 09:00 01/01/18 09:00 01/01/18 09:00 01/01/18 09:00 12/14/17 20:05 Assessment and Plan (1) Mood disorder due to known physiological condition with depressive features Current visit: Yes Status: Acute Risks, benefits, side effects, alternatives discussed w/pt: Yes Patient agreeable to treatment: Yes (2) Substance abuse Current visit: No Status: Acute Risks, benefits, side effects, alternatives discussed w/pt: Yes Patient agreeable to treatment: Yes (3) [place]'s disease Current visit: Yes Status: Acute Risks, benefits, side effects, alternatives discussed w/pt: Yes Patient agreeable to treatment: Yes (4) Mild cognitive impairment Current visit: Yes Status: Acute Risks, benefits, side effects, alternatives discussed w/pt: Yes Patient agreeable to treatment: Yes Consult Discharge Plan - Plan Referrals: NONE,PCP [Primary Care Provider] -
[2018-01-01] MEDS: traZODone 50 MG TABLET PO PRN (20:52)
[2018-01-01] MEDS: hydrOXYzine pamoate 25 MG CAPSULE PO PRN (20:53)
[2018-01-02] MEDS: Ibuprofen 400 MG TABLET PO PRN ×2 (06:38→21:20)
[2018-01-02] MEDS: risperiDONE 1 MG TABLET PO SCH ×2 (09:03→21:20)
--- NOTE | 2018-01-02 13:59 | Psychiatry Progress Note ---
Date of Encounter: 01/02/18 Time of Encounter: 13:40 Subjective Interval history: Patient seen today , case d/w staff and treatment team , she has been more verbal but still laughing after every small sentence as response is slow and short. she is not having any side effects from medication , she has been compliant with treatment plan. she has responded well to medication , will start discharge planning. Review of Systems Psychiatric: Reports: depression, anxiety, confusion, memory loss, mood swings Objective: Exam Patient orientation: Yes Person, Yes Time, Yes Place Level of alertness: Alert Patient appearance: Appropriate Behavior: calm, cooperative Psychomotor activity: Slowed Eye contact: Minimal Contact Mood description: Euthymic/stable Affect description: incongruent with mood Speech pattern: Slowed, Limited Speech volume: Soft/Quiet Thought process: [place] Thought content: Yes Preoccupation Judgment: Poor Insight: Minimal Results - Vital Signs Vital Signs: Temp Pulse Resp BP Pulse Ox 97.2 F L 83 16 104/72 93 01/02/18 08:58 01/02/18 08:58 01/02/18 08:58 01/02/18 08:58 12/14/17 20:05 Assessment and Plan (1) Mood disorder due to known physiological condition with depressive features Current visit: Yes Status: Acute Risks, benefits, side effects, alternatives discussed w/pt: Yes Patient agreeable to treatment: Yes (2) Substance abuse Current visit: No Status: Acute Risks, benefits, side effects, alternatives discussed w/pt: Yes Patient agreeable to treatment: Yes (3) [place]'s disease Current visit: Yes Status: Acute Risks, benefits, side effects, alternatives discussed w/pt: Yes Patient agreeable to treatment: Yes (4) Mild cognitive impairment Current visit: Yes Status: Acute Risks, benefits, side effects, alternatives discussed w/pt: Yes Patient agreeable to treatment: Yes Consult Discharge Plan - Plan Referrals: NONE,PCP [Primary Care Provider] -
[2018-01-02] MEDS: traZODone 50 MG TABLET PO PRN (21:20)
[2018-01-03] MEDS: risperiDONE 1 MG TABLET PO SCH ×2 (08:10→21:34)
--- NOTE | 2018-01-03 10:54 | Psychiatry Progress Note ---
Date of Encounter: 01/03/18 Time of Encounter: 10:30 Subjective Interval history: Patient seen today case d/w treatment team , she has been showing improvement slowly and has been compliant and cooperative. she denies side effects , her movements do not affect her , she has been smiling , somewhat verbal and needs supervision. will be dc tomorrow with her family Review of Systems Psychiatric: Reports: depression, anxiety, confusion, memory loss, mood swings Objective: Exam Patient orientation: Yes Person, Yes Time, Yes Place Level of alertness: Alert Patient appearance: Appropriate Behavior: calm, cooperative Psychomotor activity: Normal Eye contact: Maintains Eye Contact Mood description: Euthymic/stable Affect description: incongruent with mood Speech pattern: Slowed Speech volume: Soft/Quiet Thought process: Slowed Thinking Thought content: Yes Poverty of Content Judgment: Limited Insight: Minimal Results - Vital Signs Vital Signs: Temp Pulse Resp BP Pulse Ox 98.0 F 99 16 115/80 93 01/03/18 09:00 01/03/18 09:00 01/03/18 09:00 01/03/18 09:00 12/14/17 20:05 Assessment and Plan (1) Mood disorder due to known physiological condition with depressive features Current visit: Yes Status: Acute Risks, benefits, side effects, alternatives discussed w/pt: Yes Patient agreeable to treatment: Yes (2) Substance abuse Current visit: No Status: Acute Risks, benefits, side effects, alternatives discussed w/pt: Yes Patient agreeable to treatment: Yes (3) Lou's disease Current visit: Yes Status: Acute Risks, benefits, side effects, alternatives discussed w/pt: Yes Patient agreeable to treatment: Yes (4) Mild cognitive impairment Current visit: Yes Status: Acute Risks, benefits, side effects, alternatives discussed w/pt: Yes Patient agreeable to treatment: Yes Consult Discharge Plan - Plan Referrals: Naima Hunter [Advanced Practice Nurse] - 01/14/18 11:00 am (The above appointment is with Naima Hunter CNP, at [facility]. This appointment is to establish you with a primary care provider. Please arrive 15 minutes early to complete paperwork. Please bring your insurance card, photo ID and list of current medications to your first appointment. The above appointment(s) reflects first availability. You may contact the office regularly to check for cancellations that may allow you to be seen sooner.)
[2018-01-03] MEDS: Ibuprofen 400 MG TABLET PO PRN (11:07)
[2018-01-03] MEDS: traZODone 50 MG TABLET PO PRN (21:34)
[2018-01-04] MEDS: risperiDONE 1 MG TABLET PO SCH (08:50)
[2018-01-04 09:42] VITALS: BP 118/72
--- NOTE | 2018-01-04 09:53 | Discharge Summary ---
Date of Encounter: 01/04/18 Time of Encounter: 09:30 Diagnosis - Discharge Diagnosis (1) Mood disorder due to known physiological condition with depressive features Status: Acute Comments: patient responded to treatment and structured enviornment. (2) Substance abuse Status: Acute Comments: education given and counselling given (3) Lou's disease Status: Acute Comments: patient will follow up with her PCP and neurologist. (4) Mild cognitive impairment Status: Acute Medications - Discharge Medications Prescriptions: risperiDONE [RisperDAL] 1 mg PO BID #60 tablet risperiDONE [RisperDAL] 1 mg PO BID #60 tablet 01/04/18 [Rx] 3 Allergy/AdvReac Type Severity Reaction Status Date / Time No Known Allergies Allergy Verified 09/28/17 16:16 Results Procedures and tests throughout hospitalization: Completed Lab Orders Category Date Time Status Geneva Disease Mutation Routine Lab 12/17/17 13:59 Completed Provider Date of admission: 12/12/17 23:08 Primary care physician: PCP NONE Assessment and Plan - Patient/Caregiver Discharge Instructions Activity: resume usual activities as tolerated Diet: regular diet - Follow up Plan Follow up with: [facility] [Outside] - 02/27/18 1:00 pm (The above appointment is with for Elsa Kirstin for outpatient psychiatric assessment and medication management services. Please arrive 30 minutes early to complete paperwork. Please bring your photo ID (bring proof of address if you do not have an ID) and medication list. The above appointment(s) reflects first availability. You may contact the office regularly to check for cancellations that may allow you to be seen sooner. Additionally, the new keycase assembler assigned to you will contact you directly to schedule your intake appointment for case management and mental health counseling services. ) Naima Hunter [Advanced Practice Nurse] - 01/14/18 11:00 am (The above appointment is with Naima Hunter CNP, at [facility]. This appointment is to establish you with a primary care provider. Please arrive 15 minutes early to complete paperwork. Please bring your insurance card, photo ID and list of current medications to your first appointment. The above appointment(s) reflects first availability. You may contact the office regularly to check for cancellations that may allow you to be seen sooner.) Overall status at discharge: Stable Disposition: Home, Self-Care Hospital Course Hospital course: Ms. Ball is a 22 year old female admitted to medical services after taking intentional overdose , she has been dx with Depression , she was then transfered to for further treatment and stabilization. Her mother passed 2-3 months ago and had been dx with [place]'s disease. During her hospital stay , she was not started on antidepressants as patient denied any depressive s/s and observation also did not show any depressive s/s, she was at times labile, cognitive impairement noted , short answers and verbal only if asked uestions, speaks in muffled voice and has blunt affect ,she attended groups and compliant. she was given risperdal and she showed much improvement in her thought process and moods. Patient was tested for Lou and was positive. at present no eps, no abnormal movements noted , AIMS 0 she has poor insight , still declines using any drugs , or Overdose. she denies any suicidal/homicidal ideation . she will live with her aunt and education given to patient. - Time Spent with Patient Total time spent providing and/or coordinating discharge services: Greater than 30 minutes (patient not in danger to self/others.) Quality - Multiple Antipsychotics Patient discharged on 2 or more antipsychotic medications: No Procedures - Procedures Procedures: Medication Management, Crisis Stabilization, Supportive Therapy, Group Therapy, Psychoeducational Therapy Mental Status Exam - Mental Status Exam Patient orientation: Yes Person, Yes Time, Yes Place Level of alertness: Alert Patient appearance: Appropriate Behavior: calm, cooperative Psychomotor activity: Slowed Eye contact: Minimal Contact Mood description: Euthymic/stable Affect description: blunted Speech pattern: Slowed Speech Volume: Soft/Quiet Thought process: Slowed Thinking Thought Content: Yes Intact, Yes Preoccupation Judgment: [place] Insight: Minimal
== END 2018-01-04 14:30 | disposition home or self-care (01) | DRG 751 ==
LOC: 1ANU 23:08 → SUATTDRO 23:08 → 1ANU 12-21 20:57
PROVIDERS: ADMIT Psychiatry & Neurology Forensic Psychiatry; ATTEND Psychiatry & Neurology Psychiatry

== ENCOUNTER 2018-01-23 16:18 | Inpatient (IN) ==
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
[2018-01-23 17:13] LABS: Basophils % 0.4 %; Eosinophils # 0.1 K/mcL (0.0-0.6); Eosinophils % 1.4 %; Hematocrit 36.8 % (35.3-44.9); Hemoglobin 12.6 g/dL (11.5-15.4); Immature Granulocytes % 0.5 % (0-4); Lymphocytes # 3.3 K/mcL (0.6-4.6); Lymphocytes % 32.2 %; Mean Corpuscular HGB Conc 34.2 g/dL (31.6-35.5); Mean Corpuscular Hemoglobin 29.8 pg (28.0-33.3); Mean Platelet Volume 10.6 fL (9.4-12.4); Monocytes % 9.8 %; Neutrophils # 5.7 K/mcL (1.6-8.9); Platelet Count 356 K/mcL (140-400); Red Blood Count 4.23 M/mcL (3.82-4.97); Red Cell Distribution Width 13.2 % (11.5-14.5); Segmented Neutrophils % 55.7 %
[2018-01-23 17:20] LABS: INR 1.1; Prothrombin Time 12.3 Seconds (9.4-12.1)
[2018-01-23 17:23] LABS: Activated Partial Thrombo Time 27.9 Seconds (26.0-36.0)
[2018-01-23 17:36] LABS: Troponin I < 0.03 ng/mL (< 0.04)
[2018-01-23 17:37] LABS: Alanine Aminotransferase 12 Units/L (7-52); Albumin 4.5 g/dL (3.5-5.7); Albumin/Globulin Ratio 1.7 (1.1-2.2); Alkaline Phosphatase 79 Units/L (34-104); Aspartate Amino Transferase 20 Units/L (13-39); BUN/Creatinine Ratio 12 (6-26); Bilirubin,Direct 0.2 mg/dL (0.0-0.2); Bilirubin,Indirect 0.5 mg/dL (0.0-1.2); Bilirubin,Total 0.7 mg/dL (0.3-1.0); Blood Urea Nitrogen 8 mg/dL (6-20); Calcium 9.4 mg/dL (8.6-10.3); Carbon Dioxide 21 mEq/L (23-29); Chloride 107 mEq/L (98-107); Ethanol < 10 mg/dL (Less than 10); Globulin 2.7 g/dL (2.4-3.5); Glucose 91 mg/dL (70-105); Osmolality,Calculated 280 (280-300); Potassium 3.3 mEq/L (3.5-5.1); Sodium 136 mEq/L (136-145); Total Protein 7.2 g/dL (6.4-8.9); eGFR For African Americans > 60 (> 60); eGFR For Non-African Americans > 60 (> 60)
[2018-01-23 19:59] LABS: Bilirubin,Urine Small (Negative); Blood,Urine Moderate (Negative); Clarity,Urine Cloudy (Clear); Color,Urine Dark Yellow (Yellow); Glucose,Urine (UA) Normal (Normal); Ketones,Urine Trace mg/dL (Negative); Leukocyte Esterase,Urine Moderate (Negative); Nitrite,Urine Positive (Negative); Protein,Urine 30 mg/dL (Neg-Trace); Specific Gravity,Urine > 1.030 (1.010-1.025); Urobilinogen,Urine Normal (Normal)
[2018-01-23 20:01] LABS: Bacteria,Urine Many per hpf (None-Few); Squamous Epithelial Cell,Urine Many per lpf (None-Few); WBC,Urine 50-100 per hpf (0-3)
[2018-01-23 20:17] LABS: Hyaline Casts,Urine None Seen per lpf (None-Few); RBC,Urine 15-30 per hpf (0-3)
[2018-01-23 20:18] LABS: Mucus,Urine Many (Few)
[2018-01-23 20:20] LABS: Amphetamine Screen,Urine Positive ng/mL (Cutoff=1000); Barbiturate Screen,Urine Negative ng/mL (Cutoff=200); Benzodiazepines Screen,Urine Positive ng/mL (Cutoff=200); Cannabinoid Screen,Urine Positive ng/mL (Cutoff = 50); Cocaine Screen,Urine Negative ng/mL (Cutoff= 300); Opiate Screen,Urine Negative ng/mL (Cutoff=300); Phencyclidine Screen,Urine Negative ng/mL (Cutoff=25)
[2018-01-23 20:22] LABS: Creatine Kinase 103 Units/L (30-223)
[2018-01-23] MEDS ORDERED: cefTRIAXone 1,000 MG in Water for inj. (sterile) 20 ML 10 ML IVP ONE (20:25)
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
[2018-01-23] MEDS ORDERED: Naloxone 0.4 MG/ML INJ IVP PRN (23:35)
[2018-01-23] MEDS ORDERED: Potassium Chloride 20 MEQ, Lidocaine 1% 2 ML in D5% in Water 250 ML IVPB ONE (23:54)
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
[2018-01-24] MEDS ORDERED: cefTRIAXone 2,000 MG in Water for inj. (sterile) 20 ML 20 ML IVP SCH (01:00)
[2018-01-24] MEDS: 0.9 % Sodium Chloride 1,000 ML IVC SCH (01:21)
--- NOTE | 2018-01-24 06:05 | Event Note ---
Date of Encounter: 01/24/18 Time of Encounter: 04:15 Called by RN to come assess the patient, due to swelling in her left fourth digit. The is a small bruise and abrasion on the volar surface of the finger. She is 3 rings on that digit, and the most distal ring is not able to slide over the finger. This finger is edematous, but she has complete flexion and extension of all joints of the fourth digit, sensation intact, and normal capillary refill. The ring was unable to be removed manually with lubrication, or able to be removed using a string. Decision was made to use the ring cutter to cut the ring off the finger. Patient was in agreement with this plan. Finger guard was placed between the ring and the patient's finger using lubrication. The most distal ring was then cut and removed with no damage to the finger. The other 2 rings were then able to slide off the finger easily. Patient tolerated this well. Antibiotic ointment was then placed on the finger with bandage in place.
[2018-01-24 06:41] LABS: INR 1.1; Prothrombin Time 12.3 Seconds (9.4-12.1)
[2018-01-24 06:43] LABS: Alanine Aminotransferase 9 Units/L (7-52); Albumin 3.8 g/dL (3.5-5.7); Albumin/Globulin Ratio 1.6 (1.1-2.2); Alkaline Phosphatase 74 Units/L (34-104); Aspartate Amino Transferase 17 Units/L (13-39); BUN/Creatinine Ratio 11 (6-26); Basophils # 0.1 K/mcL (0.0-0.2); Basophils % 0.8 %; Bilirubin,Total 0.5 mg/dL (0.3-1.0); Blood Urea Nitrogen 8 mg/dL (6-20); Calcium 8.7 mg/dL (8.6-10.3); Carbon Dioxide 24 mEq/L (23-29); Chloride 110 mEq/L (98-107); Chol/HDL Ratio 3.5 (0-4.9); Cholesterol 112 mg/dL (< 200); Eosinophils # 0.3 K/mcL (0.0-0.6); Eosinophils % 3.4 %; Globulin 2.4 g/dL (2.4-3.5); Glucose 89 mg/dL (70-105); HDL Cholesterol 32 mg/dL (40-59); Hematocrit 35.9 % (35.3-44.9); Immature Granulocytes % 0.9 % (0-4); LDL Cholesterol,Calculated 68 mg/dL (0-99); Lymphocytes # 3.1 K/mcL (0.6-4.6); Lymphocytes % 42.3 %; Magnesium 2.2 mg/dL (1.6-2.6); Mean Corpuscular HGB Conc 33.4 g/dL (31.6-35.5); Mean Corpuscular Hemoglobin 29.5 pg (28.0-33.3); Mean Corpuscular Volume 88.2 fL (83.0-100.0); Mean Platelet Volume 10.4 fL (9.4-12.4); Monocytes # 0.8 K/mcL (0.0-1.3); Monocytes % 10.6 %; Neutrophils # 3.1 K/mcL (1.6-8.9); Osmolality,Calculated 282 (280-300); Phosphorous 3.8 mg/dL (2.7-4.5); Platelet Count 309 K/mcL (140-400); Potassium 3.9 mEq/L (3.5-5.1); Red Blood Count 4.07 M/mcL (3.82-4.97); Red Cell Distribution Width 13.3 % (11.5-14.5); Sodium 137 mEq/L (136-145); Total Protein 6.2 g/dL (6.4-8.9); Triglycerides 58 mg/dL (< 150); eGFR For African Americans > 60 (> 60); eGFR For Non-African Americans > 60 (> 60)
[2018-01-24] MEDS: cefTRIAXone 2,000 MG in Water for inj. (sterile) 20 ML 20 ML IVP SCH (08:50)
[2018-01-24] MEDS: Bacitracin/PolymyxinB OINT 14.17 GM TUBE TP SCH ×2 (11:10→23:27)
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
[2018-01-24] MEDS ORDERED: Permethrin Cream Rinse 60 ML LIQUID TP ONE (15:14)
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
--- NOTE | 2018-01-24 16:44 | Electrocardiograph Report ---
[address] [address] Test Date: 2018-01-23 Pat Name: Debbie Brito Department: 102 Room: 2A Gender: F Street Light [employer] Helper: Janice : 1995 Requested By: Fausto Sam Order Number: [id number] Reading MD: Ashish Rice Measurements Intervals [place] Rate: 89 P: 62 PA: 133 QRS: 81 QRSD: 84 T: 46 QT: 354 QTc: 401 Interpretive Statements SINUS RHYTHM Electronically Signed On 01-24-2018 16:42:54 EDT by Ashish Rice
[2018-01-24] MEDS ORDERED: Azithromycin 250 MG TABLET PO ONE (17:45)
[2018-01-24] MEDS ORDERED: *HR* Heparin 5,000 UNIT/ML VIAL SQ SCH (22:00)
[2018-01-25 02:34] LABS: Hepatitis A Antibody IgM Nonreactive (Nonreactive); Hepatitis B Core IgM Nonreactive (Nonreactive); Hepatitis B Surface Antigen Nonreactive (Nonreactive); Hepatitis C Virus Antibody Nonreactive (Nonreactive)
[2018-01-25 03:58] LABS: Basophils # 0.1 K/mcL (0.0-0.2); Basophils % 0.6 %; Eosinophils # 0.2 K/mcL (0.0-0.6); Eosinophils % 2.8 %; Hematocrit 34.7 % (35.3-44.9); Hemoglobin 11.5 g/dL (11.5-15.4); Immature Granulocytes % 0.4 % (0-4); Lymphocytes # 3.4 K/mcL (0.6-4.6); Lymphocytes % 41.7 %; Mean Corpuscular HGB Conc 33.1 g/dL (31.6-35.5); Mean Corpuscular Hemoglobin 29.6 pg (28.0-33.3); Mean Corpuscular Volume 89.2 fL (83.0-100.0); Mean Platelet Volume 10.4 fL (9.4-12.4); Monocytes # 0.7 K/mcL (0.0-1.3); Neutrophils # 3.7 K/mcL (1.6-8.9); Platelet Count 269 K/mcL (140-400); Red Blood Count 3.89 M/mcL (3.82-4.97); Red Cell Distribution Width 13.3 % (11.5-14.5); Segmented Neutrophils % 45.5 %
[2018-01-25 04:23] LABS: Alanine Aminotransferase 7 Units/L (7-52); Albumin 3.5 g/dL (3.5-5.7); Albumin/Globulin Ratio 1.9 (1.1-2.2); Alkaline Phosphatase 69 Units/L (34-104); Aspartate Amino Transferase 15 Units/L (13-39); BUN/Creatinine Ratio 16 (6-26); Bilirubin,Total 0.3 mg/dL (0.3-1.0); Blood Urea Nitrogen 10 mg/dL (6-20); Calcium 8.3 mg/dL (8.6-10.3); Carbon Dioxide 23 mEq/L (23-29); Chloride 111 mEq/L (98-107); Globulin 1.8 g/dL (2.4-3.5); Glucose 86 mg/dL (70-105); Osmolality,Calculated 286 (280-300); Sodium 139 mEq/L (136-145); Total Protein 5.3 g/dL (6.4-8.9); eGFR For African Americans > 60 (> 60); eGFR For Non-African Americans > 60 (> 60)
[2018-01-25] MEDS: cefTRIAXone 2,000 MG in Water for inj. (sterile) 20 ML 20 ML IVP SCH (09:27)
[2018-01-25] MEDS: risperiDONE 0.25 MG TABLET PO SCH ×2 (09:27→22:03)
[2018-01-25] MEDS: Bacitracin/PolymyxinB OINT 14.17 GM TUBE TP SCH ×2 (09:27→22:04)
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
[2018-01-25] MEDS: 0.9 % Sodium Chloride 1,000 ML IVC SCH (14:16)
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
[2018-01-26 05:40] LABS: Basophils % 0.5 %; Eosinophils # 0.2 K/mcL (0.0-0.6); Eosinophils % 3.3 %; Hematocrit 34.5 % (35.3-44.9); Hemoglobin 11.5 g/dL (11.5-15.4); Immature Granulocytes % 0.3 % (0-4); Lymphocytes # 2.6 K/mcL (0.6-4.6); Lymphocytes % 43.2 %; Mean Corpuscular HGB Conc 33.3 g/dL (31.6-35.5); Mean Corpuscular Hemoglobin 30.1 pg (28.0-33.3); Mean Corpuscular Volume 90.3 fL (83.0-100.0); Mean Platelet Volume 10.9 fL (9.4-12.4); Monocytes # 0.6 K/mcL (0.0-1.3); Monocytes % 9.4 %; Neutrophils # 2.6 K/mcL (1.6-8.9); Platelet Count 263 K/mcL (140-400); Red Blood Count 3.82 M/mcL (3.82-4.97); Red Cell Distribution Width 13.1 % (11.5-14.5); Segmented Neutrophils % 43.3 %
[2018-01-26 05:57] LABS: Alanine Aminotransferase 6 Units/L (7-52); Albumin 3.5 g/dL (3.5-5.7); Albumin/Globulin Ratio 1.6 (1.1-2.2); Alkaline Phosphatase 69 Units/L (34-104); Aspartate Amino Transferase 13 Units/L (13-39); BUN/Creatinine Ratio 11 (6-26); Bilirubin,Total 0.2 mg/dL (0.3-1.0); Blood Urea Nitrogen 7 mg/dL (6-20); Calcium 8.9 mg/dL (8.6-10.3); Carbon Dioxide 26 mEq/L (23-29); Chloride 110 mEq/L (98-107); Globulin 2.2 g/dL (2.4-3.5); Glucose 95 mg/dL (70-105); Osmolality,Calculated 286 (280-300); Potassium 3.9 mEq/L (3.5-5.1); Sodium 139 mEq/L (136-145); Total Protein 5.7 g/dL (6.4-8.9); eGFR For African Americans > 60 (> 60); eGFR For Non-African Americans > 60 (> 60)
[2018-01-26] MEDS: 0.9 % Sodium Chloride 1,000 ML IVC SCH ×4 (07:19→20:39)
[2018-01-26] MEDS: cefTRIAXone 2,000 MG in Water for inj. (sterile) 20 ML 20 ML IVP SCH (10:02)
[2018-01-26] MEDS: risperiDONE 0.25 MG TABLET PO SCH ×2 (10:03→20:39)
[2018-01-26] MEDS: Bacitracin/PolymyxinB OINT 14.17 GM TUBE TP SCH ×2 (10:05→20:40)
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
[2018-01-27 04:24] LABS: Basophils % 0.5 %; Eosinophils # 0.2 K/mcL (0.0-0.6); Eosinophils % 3.8 %; Hematocrit 33.3 % (35.3-44.9); Hemoglobin 11.1 g/dL (11.5-15.4); Immature Granulocytes % 0.5 % (0-4); Lymphocytes # 2.6 K/mcL (0.6-4.6); Lymphocytes % 43.9 %; Mean Corpuscular HGB Conc 33.3 g/dL (31.6-35.5); Mean Corpuscular Hemoglobin 29.6 pg (28.0-33.3); Mean Corpuscular Volume 88.8 fL (83.0-100.0); Mean Platelet Volume 10.3 fL (9.4-12.4); Monocytes # 0.5 K/mcL (0.0-1.3); Monocytes % 9.1 %; Neutrophils # 2.5 K/mcL (1.6-8.9); Platelet Count 248 K/mcL (140-400); Red Blood Count 3.75 M/mcL (3.82-4.97); Segmented Neutrophils % 42.2 %
[2018-01-27 04:38] LABS: Alanine Aminotransferase 5 Units/L (7-52); Albumin 3.3 g/dL (3.5-5.7); Albumin/Globulin Ratio 1.5 (1.1-2.2); Alkaline Phosphatase 65 Units/L (34-104); Aspartate Amino Transferase 11 Units/L (13-39); BUN/Creatinine Ratio 14 (6-26); Bilirubin,Total 0.2 mg/dL (0.3-1.0); Blood Urea Nitrogen 8 mg/dL (6-20); Calcium 8.6 mg/dL (8.6-10.3); Carbon Dioxide 26 mEq/L (23-29); Chloride 109 mEq/L (98-107); Globulin 2.2 g/dL (2.4-3.5); Glucose 95 mg/dL (70-105); Osmolality,Calculated 286 (280-300); Potassium 3.6 mEq/L (3.5-5.1); Sodium 139 mEq/L (136-145); Total Protein 5.5 g/dL (6.4-8.9); eGFR For African Americans > 60 (> 60); eGFR For Non-African Americans > 60 (> 60)
[2018-01-27] MEDS: cefTRIAXone 2,000 MG in Water for inj. (sterile) 20 ML 20 ML IVP SCH (12:56)
[2018-01-27] MEDS: Bacitracin/PolymyxinB OINT 14.17 GM TUBE TP SCH ×2 (12:59→22:45)
[2018-01-27] MEDS: risperiDONE 0.25 MG TABLET PO SCH ×2 (12:59→22:35)
[2018-01-27] MEDS: 0.9 % Sodium Chloride 1,000 ML IVC SCH ×2 (12:59→22:35)
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
[2018-01-28 03:58] LABS: Basophils % 0.3 %; Eosinophils # 0.3 K/mcL (0.0-0.6); Eosinophils % 3.8 %; Hematocrit 33.4 % (35.3-44.9); Hemoglobin 11.1 g/dL (11.5-15.4); Immature Granulocytes % 0.6 % (0-4); Lymphocytes # 2.6 K/mcL (0.6-4.6); Lymphocytes % 38.9 %; Mean Corpuscular HGB Conc 33.2 g/dL (31.6-35.5); Mean Corpuscular Volume 90.3 fL (83.0-100.0); Mean Platelet Volume 10.4 fL (9.4-12.4); Monocytes # 0.6 K/mcL (0.0-1.3); Monocytes % 8.3 %; Neutrophils # 3.2 K/mcL (1.6-8.9); Platelet Count 260 K/mcL (140-400); Segmented Neutrophils % 48.1 %
[2018-01-28 04:20] LABS: Alanine Aminotransferase 4 Units/L (7-52); Albumin 3.5 g/dL (3.5-5.7); Albumin/Globulin Ratio 1.7 (1.1-2.2); Alkaline Phosphatase 62 Units/L (34-104); Aspartate Amino Transferase 11 Units/L (13-39); BUN/Creatinine Ratio 19 (6-26); Bilirubin,Total 0.2 mg/dL (0.3-1.0); Blood Urea Nitrogen 11 mg/dL (6-20); Calcium 8.7 mg/dL (8.6-10.3); Carbon Dioxide 26 mEq/L (23-29); Chloride 108 mEq/L (98-107); Globulin 2.1 g/dL (2.4-3.5); Glucose 100 mg/dL (70-105); Osmolality,Calculated 283 (280-300); Potassium 3.9 mEq/L (3.5-5.1); Sodium 137 mEq/L (136-145); Total Protein 5.6 g/dL (6.4-8.9); eGFR For African Americans > 60 (> 60); eGFR For Non-African Americans > 60 (> 60)
[2018-01-28] MEDS: Bacitracin/PolymyxinB OINT 14.17 GM TUBE TP SCH ×2 (09:00→19:21)
[2018-01-28] MEDS: risperiDONE 0.25 MG TABLET PO SCH ×2 (09:05→19:18)
[2018-01-28] MEDS: 0.9 % Sodium Chloride 1,000 ML IVC SCH ×2 (09:05→19:30)
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
[2018-01-29 05:25] LABS: Basophils % 0.6 %; Eosinophils # 0.4 K/mcL (0.0-0.6); Eosinophils % 6.4 %; Hematocrit 34.4 % (35.3-44.9); Hemoglobin 11.2 g/dL (11.5-15.4); Immature Granulocytes % 0.6 % (0-4); Lymphocytes # 2.8 K/mcL (0.6-4.6); Lymphocytes % 42.4 %; Mean Corpuscular HGB Conc 32.6 g/dL (31.6-35.5); Mean Corpuscular Hemoglobin 29.6 pg (28.0-33.3); Mean Platelet Volume 10.7 fL (9.4-12.4); Monocytes # 0.6 K/mcL (0.0-1.3); Monocytes % 9.3 %; Neutrophils # 2.7 K/mcL (1.6-8.9); Platelet Count 259 K/mcL (140-400); Red Blood Count 3.78 M/mcL (3.82-4.97); Red Cell Distribution Width 13.2 % (11.5-14.5); Segmented Neutrophils % 40.7 %
[2018-01-29 05:45] LABS: BUN/Creatinine Ratio 20 (6-26); Blood Urea Nitrogen 12 mg/dL (6-20); Calcium 8.5 mg/dL (8.6-10.3); Carbon Dioxide 26 mEq/L (23-29); Chloride 110 mEq/L (98-107); Glucose 90 mg/dL (70-105); Osmolality,Calculated 289 (280-300); Potassium 3.8 mEq/L (3.5-5.1); Sodium 140 mEq/L (136-145); eGFR For African Americans > 60 (> 60); eGFR For Non-African Americans > 60 (> 60)
[2018-01-29] MEDS: risperiDONE 0.25 MG TABLET PO SCH ×2 (09:24→19:58)
[2018-01-29] MEDS: Bacitracin/PolymyxinB OINT 14.17 GM TUBE TP SCH ×2 (09:25→19:59)
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
[2018-01-29] MEDS: *HR* Heparin 5,000 UNIT/ML VIAL SQ SCH (17:44)
[2018-01-29] MEDS: 0.9 % Sodium Chloride 1,000 ML IVC SCH (19:35)
[2018-01-30] MEDS: *HR* Heparin 5,000 UNIT/ML VIAL SQ SCH ×2 (04:50→17:05)
[2018-01-30 06:38] LABS: Basophils # 0.1 K/mcL (0.0-0.2); Basophils % 0.6 %; Eosinophils # 0.4 K/mcL (0.0-0.6); Eosinophils % 5.5 %; Hematocrit 34.1 % (35.3-44.9); Hemoglobin 11.2 g/dL (11.5-15.4); Immature Granulocytes % 0.6 % (0-4); Lymphocytes # 2.7 K/mcL (0.6-4.6); Mean Corpuscular HGB Conc 32.8 g/dL (31.6-35.5); Mean Corpuscular Hemoglobin 29.6 pg (28.0-33.3); Mean Corpuscular Volume 90.2 fL (83.0-100.0); Mean Platelet Volume 10.3 fL (9.4-12.4); Monocytes # 0.8 K/mcL (0.0-1.3); Monocytes % 9.6 %; Neutrophils # 4.1 K/mcL (1.6-8.9); Platelet Count 239 K/mcL (140-400); Red Blood Count 3.78 M/mcL (3.82-4.97); Segmented Neutrophils % 50.7 %
[2018-01-30 06:55] LABS: BUN/Creatinine Ratio 25 (6-26); Blood Urea Nitrogen 16 mg/dL (6-20); Calcium 8.8 mg/dL (8.6-10.3); Carbon Dioxide 30 mEq/L (23-29); Chloride 106 mEq/L (98-107); Glucose 98 mg/dL (70-105); Osmolality,Calculated 289 (280-300); Potassium 3.9 mEq/L (3.5-5.1); Sodium 139 mEq/L (136-145); eGFR For African Americans > 60 (> 60); eGFR For Non-African Americans > 60 (> 60)
[2018-01-30] MEDS: Bacitracin/PolymyxinB OINT 14.17 GM TUBE TP SCH ×2 (09:01→20:33)
[2018-01-30] MEDS: risperiDONE 0.25 MG TABLET PO SCH ×2 (09:02→20:33)
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
[2018-01-31] MEDS: *HR* Heparin 5,000 UNIT/ML VIAL SQ SCH ×2 (03:53→17:09)
[2018-01-31 07:29] LABS: BUN/Creatinine Ratio 19 (6-26); Blood Urea Nitrogen 11 mg/dL (6-20); Calcium 8.9 mg/dL (8.6-10.3); Carbon Dioxide 26 mEq/L (23-29); Chloride 108 mEq/L (98-107); Glucose 99 mg/dL (70-105); Magnesium 2.1 mg/dL (1.6-2.6); Osmolality,Calculated 283 (280-300); Potassium 4.1 mEq/L (3.5-5.1); Sodium 137 mEq/L (136-145); eGFR For African Americans > 60 (> 60); eGFR For Non-African Americans > 60 (> 60)
[2018-01-31 07:54] LABS: Basophils # 0.1 K/mcL (0.0-0.2); Basophils % 0.9 %; Eosinophils # 0.3 K/mcL (0.0-0.6); Eosinophils % 4.6 %; Hematocrit 35.8 % (35.3-44.9); Hemoglobin 11.7 g/dL (11.5-15.4); Immature Granulocytes % 0.8 % (0-4); Lymphocytes # 2.3 K/mcL (0.6-4.6); Lymphocytes % 34.8 %; Mean Corpuscular HGB Conc 32.7 g/dL (31.6-35.5); Mean Corpuscular Hemoglobin 29.8 pg (28.0-33.3); Mean Corpuscular Volume 91.1 fL (83.0-100.0); Mean Platelet Volume 10.4 fL (9.4-12.4); Monocytes # 0.6 K/mcL (0.0-1.3); Monocytes % 9.8 %; Neutrophils # 3.2 K/mcL (1.6-8.9); Platelet Count 237 K/mcL (140-400); Red Blood Count 3.93 M/mcL (3.82-4.97); Red Cell Distribution Width 13.1 % (11.5-14.5); Segmented Neutrophils % 49.1 %
[2018-01-31] MEDS: risperiDONE 0.25 MG TABLET PO SCH ×2 (09:41→21:41)
[2018-01-31] MEDS: Bacitracin/PolymyxinB OINT 14.17 GM TUBE TP SCH ×2 (09:42→21:41)
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
[2018-02-01] MEDS: *HR* Heparin 5,000 UNIT/ML VIAL SQ SCH ×2 (05:01→16:37)
[2018-02-01] MEDS: risperiDONE 0.25 MG TABLET PO SCH ×2 (07:57→19:18)
[2018-02-01] MEDS: Bacitracin/PolymyxinB OINT 14.17 GM TUBE TP SCH ×2 (07:57→19:12)
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
[2018-02-02] MEDS: *HR* Heparin 5,000 UNIT/ML VIAL SQ SCH ×2 (05:10→16:37)
[2018-02-02] MEDS: risperiDONE 0.25 MG TABLET PO SCH ×2 (08:14→19:43)
[2018-02-02] MEDS: Bacitracin/PolymyxinB OINT 14.17 GM TUBE TP SCH ×2 (08:15→19:43)
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
[2018-02-03] MEDS: *HR* Heparin 5,000 UNIT/ML VIAL SQ SCH ×2 (05:28→17:54)
[2018-02-03] MEDS: risperiDONE 0.25 MG TABLET PO SCH ×2 (10:04→20:01)
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
[2018-02-03] MEDS: Bacitracin/PolymyxinB OINT 14.17 GM TUBE TP SCH ×2 (17:48→20:01)
[2018-02-04] MEDS: *HR* Heparin 5,000 UNIT/ML VIAL SQ SCH ×2 (05:10→18:02)
[2018-02-04] MEDS: risperiDONE 0.25 MG TABLET PO SCH ×2 (08:51→21:43)
[2018-02-04] MEDS: Bacitracin/PolymyxinB OINT 14.17 GM TUBE TP SCH ×2 (08:52→21:43)
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
[2018-02-05] MEDS: *HR* Heparin 5,000 UNIT/ML VIAL SQ SCH ×2 (05:40→18:23)
[2018-02-05] MEDS: Bacitracin/PolymyxinB OINT 14.17 GM TUBE TP SCH ×2 (09:56→21:14)
[2018-02-05] MEDS: risperiDONE 0.25 MG TABLET PO SCH ×2 (09:56→21:10)
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
[2018-02-06] MEDS: *HR* Heparin 5,000 UNIT/ML VIAL SQ SCH ×2 (06:28→18:56)
[2018-02-06] MEDS: risperiDONE 0.25 MG TABLET PO SCH ×2 (09:33→20:29)
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
[2018-02-06] MEDS: Bacitracin/PolymyxinB OINT 14.17 GM TUBE TP SCH (20:30)
[2018-02-06] MEDS ORDERED: Acetaminophen 325 MG TABLET PO PRN (21:40)
[2018-02-07] MEDS: *HR* Heparin 5,000 UNIT/ML VIAL SQ SCH ×2 (05:14→15:27)
[2018-02-07] MEDS: risperiDONE 0.25 MG TABLET PO SCH ×2 (07:28→20:22)
[2018-02-07] MEDS: Bacitracin/PolymyxinB OINT 14.17 GM TUBE TP SCH ×2 (07:29→20:23)
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
[2018-02-07] MEDS: Acetaminophen 325 MG TABLET PO PRN (20:23)
[2018-02-08] MEDS: *HR* Heparin 5,000 UNIT/ML VIAL SQ SCH ×2 (05:32→18:10)
[2018-02-08] MEDS: Bacitracin/PolymyxinB OINT 14.17 GM TUBE TP SCH ×2 (08:55→21:51)
[2018-02-08] MEDS: risperiDONE 0.25 MG TABLET PO SCH ×2 (08:55→21:49)
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
[2018-02-08] MEDS: Acetaminophen 325 MG TABLET PO PRN (16:02)
[2018-02-09] MEDS: *HR* Heparin 5,000 UNIT/ML VIAL SQ SCH ×2 (05:21→17:21)
[2018-02-09] MEDS: Bacitracin/PolymyxinB OINT 14.17 GM TUBE TP SCH ×3 (07:52→21:32)
[2018-02-09] MEDS: risperiDONE 0.25 MG TABLET PO SCH ×2 (07:52→21:33)
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
[2018-02-10] MEDS: *HR* Heparin 5,000 UNIT/ML VIAL SQ SCH ×2 (04:46→17:20)
[2018-02-10] MEDS: Bacitracin/PolymyxinB OINT 14.17 GM TUBE TP SCH (08:59)
[2018-02-10] MEDS: risperiDONE 0.25 MG TABLET PO SCH ×2 (08:59→21:19)
[2018-02-10] MEDS ORDERED: Bacitracin/PolymyxinB OINT 14.17 GM TUBE TP PRN (09:04)
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
[2018-02-11] MEDS: *HR* Heparin 5,000 UNIT/ML VIAL SQ SCH ×2 (05:26→16:12)
[2018-02-11] MEDS: risperiDONE 0.25 MG TABLET PO SCH ×2 (08:36→19:40)
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
[2018-02-12] MEDS: *HR* Heparin 5,000 UNIT/ML VIAL SQ SCH ×2 (05:21→17:21)
[2018-02-12] MEDS: risperiDONE 0.25 MG TABLET PO SCH ×2 (07:50→21:41)
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
[2018-02-13] MEDS: *HR* Heparin 5,000 UNIT/ML VIAL SQ SCH ×2 (05:42→16:42)
[2018-02-13] MEDS: risperiDONE 0.25 MG TABLET PO SCH ×2 (09:26→21:28)
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
[2018-02-14] MEDS: *HR* Heparin 5,000 UNIT/ML VIAL SQ SCH ×2 (05:03→17:00)
[2018-02-14] MEDS: risperiDONE 0.25 MG TABLET PO SCH ×2 (07:57→20:20)
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
[2018-02-15] MEDS: *HR* Heparin 5,000 UNIT/ML VIAL SQ SCH ×2 (05:20→16:42)
[2018-02-15] MEDS: risperiDONE 0.25 MG TABLET PO SCH ×2 (09:55→20:07)
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
[2018-02-16] MEDS: *HR* Heparin 5,000 UNIT/ML VIAL SQ SCH ×2 (05:21→18:15)
[2018-02-16] MEDS: risperiDONE 0.25 MG TABLET PO SCH ×2 (09:07→20:04)
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
[2018-02-16] MEDS: Acetaminophen 325 MG TABLET PO PRN (15:34)
[2018-02-17] MEDS: *HR* Heparin 5,000 UNIT/ML VIAL SQ SCH ×2 (05:51→16:49)
[2018-02-17] MEDS: risperiDONE 0.25 MG TABLET PO SCH ×2 (07:48→20:02)
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
[2018-02-18] MEDS: *HR* Heparin 5,000 UNIT/ML VIAL SQ SCH ×2 (05:52→16:16)
[2018-02-18] MEDS: risperiDONE 0.25 MG TABLET PO SCH ×2 (07:31→20:23)
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
[2018-02-19] MEDS: *HR* Heparin 5,000 UNIT/ML VIAL SQ SCH ×2 (05:47→18:17)
[2018-02-19] MEDS: risperiDONE 0.25 MG TABLET PO SCH ×2 (10:25→20:19)
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
[2018-02-20] MEDS: *HR* Heparin 5,000 UNIT/ML VIAL SQ SCH (05:23)
[2018-02-20] MEDS: risperiDONE 0.25 MG TABLET PO SCH (10:42)
[2018-02-20 11:23] VITALS: BP 95/62
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
== END 2018-02-20 15:45 | DRG 463 ==
LOC: EMEROO 16:18 → 2ANU 16:18 → SUATTDRO 01-24 02:44
PROVIDERS: ADMIT Nurse Practitioner Family; ATTEND Hospitalist

== ENCOUNTER 2021-04-20 10:38 | Inpatient (IN) ==
[2021-04-20] MEDS ORDERED: Naloxone 0.4 MG/ML INJ IVP PRN (13:59)
[2021-04-20] MEDS ORDERED: haloperidoL 5 MG TABLET PO ONE (14:09)
[2021-04-20] MEDS: haloperidoL 5 MG TABLET PO SCH (21:20)
[2021-04-20] MEDS: Divalproex (24 HR) 500 MG TABLET PO SCH (21:21)
[2021-04-20] MEDS: RisperiDAL 3 MG TABLET PO SCH (21:21)
[2021-04-20] MEDS: AUSTEDO 12 MG PO SCH (21:30)
[2021-04-20] MEDS: *HR* LORazepam 2 MG/ML VIAL IM PRN (23:47)
[2021-04-21] MEDS: *HR* LORazepam 2 MG/ML VIAL IM PRN (01:42)
[2021-04-21] MEDS ORDERED: clonazePAM 0.5 MG TABLET PO PRN (09:56)
[2021-04-21 11:10] LABS: Basophils % 0.5 %; Eosinophils # 0.2 K/mcL (0.0-0.6); Eosinophils % 2.5 %; Hematocrit 36.6 % (35.3-44.9); Hemoglobin 12.1 g/dL (11.5-15.4); Immature Granulocytes % 0.4 % (0-4); Lymphocytes # 2.5 K/mcL (0.6-4.6); Lymphocytes % 32.2 %; Mean Corpuscular HGB Conc 33.1 g/dL (31.6-35.5); Mean Corpuscular Hemoglobin 31.5 pg (28.0-33.3); Mean Corpuscular Volume 95.3 fL (83.0-100.0); Mean Platelet Volume 10.5 fL (9.4-12.4); Monocytes # 0.9 K/mcL (0.0-1.3); Monocytes % 11.5 %; Neutrophils # 4.2 K/mcL (1.6-8.9); Platelet Count 218 K/mcL (140-400); Red Blood Count 3.84 M/mcL (3.82-4.97); Red Cell Distribution Width 12.5 % (11.5-14.5); Segmented Neutrophils % 52.9 %; White Blood Count 7.9 K/mcL (4.3-11.1)
[2021-04-21 11:29] LABS: BUN/Creatinine Ratio 20 (6-26); Blood Urea Nitrogen 15 mg/dL (6-20); Calcium 9.5 mg/dL (8.6-10.3); Carbon Dioxide 25 mEq/L (23-29); Chloride 108 mEq/L (98-107); Glucose 84 mg/dL (70-105); Magnesium 2.2 mg/dL (1.6-2.6); Osmolality,Calculated 290 (280-300); Phosphorous 3.6 mg/dL (2.7-4.5); Potassium 3.8 mEq/L (3.5-5.1); Sodium 140 mEq/L (136-145); eGFR For African Americans > 60 (> 60); eGFR For Non-African Americans > 60 (> 60)
[2021-04-21] MEDS: FLUoxetine 20 MG CAPSULE PO SCH (12:09)
[2021-04-21] MEDS: haloperidoL 5 MG TABLET PO SCH ×3 (12:09→20:46)
[2021-04-21] MEDS: AUSTEDO 12 MG PO SCH (12:09)
[2021-04-21 12:25] LABS: Amphetamine Screen,Urine Negative ng/mL (Cutoff=1000); Barbiturate Screen,Urine Negative ng/mL (Cutoff=200); Benzodiazepines Screen,Urine Positive ng/mL (Cutoff=300)
[2021-04-21 12:26] LABS: Cannabinoid Screen,Urine Negative ng/mL (Cutoff = 50); Cocaine Screen,Urine Negative ng/mL (Cutoff= 300); Opiate Screen,Urine Negative ng/mL (Cutoff=300); Phencyclidine Screen,Urine Negative ng/mL (Cutoff=25)
[2021-04-21 12:37] LABS: Bacteria,Urine Moderate per hpf (None-Few); Bilirubin,Urine Negative (Negative); Blood,Urine Small (Negative); Clarity,Urine Ex.Turbid (Clear); Color,Urine Yellow (Yellow); Glucose,Urine (UA) Normal (Normal); Ketones,Urine 20 mg/dL (Negative); Leukocyte Esterase,Urine Large (Negative); Mucus,Urine Many per lpf (None-Few); Nitrite,Urine Positive (Negative); Protein,Urine 100 mg/dL (Neg-Trace); Specific Gravity,Urine > 1.030 (1.010-1.025); Squamous Epithelial Cell,Urine Moderate per hpf (None-Few); WBC,Urine TNTC per hpf (0-3)
[2021-04-21] MEDS ORDERED: cefTRIAXone 1,000 MG in 0.9 % Sodium Chloride Mini Bag 100 ML IVPB STA (14:32)
[2021-04-21] MEDS: Melatonin 3 MG TABLET PO SCH (20:46)
[2021-04-21] MEDS: Divalproex (24 HR) 500 MG TABLET PO SCH (20:46)
[2021-04-21] MEDS: RisperiDAL 3 MG TABLET PO SCH (20:47)
[2021-04-21] MEDS: clonazePAM 0.5 MG TABLET PO SCH (20:47)
[2021-04-21] MEDS ORDERED: AUSTEDO 6 MG PO SCH (21:00)
[2021-04-21] MEDS ORDERED: *HR* Dextrose 50 % in Water (Vial) 50 ML VIAL IVP PRN (21:02)
[2021-04-21] MEDS ORDERED: D5% in Water 1,000 ML IVC PRN (21:02)
[2021-04-21] MEDS ORDERED: Dextrose Gel 15 GM/37.5 ML TUBE PO PRN ×2 (21:02)
[2021-04-21] MEDS: AUSTEDO 6 MG PO SCH (22:56)
[2021-04-22] MEDS: *HR* LORazepam 2 MG/ML VIAL IM PRN (00:46)
[2021-04-22 02:32] LABS: Basophils % 0.4 %; Eosinophils # 0.2 K/mcL (0.0-0.6); Eosinophils % 2.2 %; Hematocrit 33.6 % (35.3-44.9); Immature Granulocytes % 0.3 % (0-4); Lymphocytes # 2.8 K/mcL (0.6-4.6); Lymphocytes % 29.4 %; Mean Corpuscular HGB Conc 32.7 g/dL (31.6-35.5); Mean Corpuscular Hemoglobin 31.1 pg (28.0-33.3); Mean Corpuscular Volume 94.9 fL (83.0-100.0); Mean Platelet Volume 10.8 fL (9.4-12.4); Monocytes # 1.1 K/mcL (0.0-1.3); Monocytes % 11.4 %; Neutrophils # 5.4 K/mcL (1.6-8.9); Platelet Count 199 K/mcL (140-400); Red Blood Count 3.54 M/mcL (3.82-4.97); Red Cell Distribution Width 12.2 % (11.5-14.5); Segmented Neutrophils % 56.3 %; White Blood Count 9.6 K/mcL (4.3-11.1)
[2021-04-22 02:51] LABS: Alanine Aminotransferase 8 Units/L (7-52); Albumin 3.8 g/dL (3.5-5.7); Albumin/Globulin Ratio 1.5 (1.1-2.2); Alkaline Phosphatase 58 Units/L (34-104); Aspartate Amino Transferase 13 Units/L (13-39); BUN/Creatinine Ratio 21 (6-26); Bilirubin,Total 0.4 mg/dL (0.3-1.0); Blood Urea Nitrogen 15 mg/dL (6-20); Carbon Dioxide 22 mEq/L (23-29); Chloride 106 mEq/L (98-107); Globulin 2.5 g/dL (2.4-3.5); Glucose 99 mg/dL (70-105); Osmolality,Calculated 293 (280-300); Phosphorous 4.1 mg/dL (2.7-4.5); Potassium 3.7 mEq/L (3.5-5.1); Sodium 141 mEq/L (136-145); Total Protein 6.3 g/dL (6.4-8.9); eGFR For African Americans > 60 (> 60); eGFR For Non-African Americans > 60 (> 60)
[2021-04-22 03:16] LABS: Folate 19.1 ng/mL (3.0-16.0)
[2021-04-22 03:17] LABS: Vitamin B12 532 pg/mL (250-1100)
[2021-04-22 06:23] LABS: HIV-1&2 Antibody & p24 Ag Nonreactive (Nonreactive)
[2021-04-22] MEDS: FLUoxetine 20 MG CAPSULE PO SCH (09:17)
[2021-04-22] MEDS: haloperidoL 5 MG TABLET PO SCH ×3 (09:17→20:00)
[2021-04-22] MEDS: AUSTEDO 6 MG PO SCH ×2 (09:19→20:03)
[2021-04-22] MEDS: clonazePAM 0.5 MG TABLET PO SCH (20:01)
[2021-04-22] MEDS: Divalproex (24 HR) 500 MG TABLET PO SCH (20:01)
[2021-04-22] MEDS: RisperiDAL 3 MG TABLET PO SCH (20:02)
[2021-04-22] MEDS: Melatonin 3 MG TABLET PO SCH (20:02)
[2021-04-23 08:39] LABS: Basophils # 0.1 K/mcL (0.0-0.2); Basophils % 0.7 %; Eosinophils # 0.3 K/mcL (0.0-0.6); Eosinophils % 3.9 %; Hematocrit 37.4 % (35.3-44.9); Hemoglobin 12.4 g/dL (11.5-15.4); Immature Granulocytes % 0.4 % (0-4); Lymphocytes # 2.6 K/mcL (0.6-4.6); Lymphocytes % 37.2 %; Mean Corpuscular HGB Conc 33.2 g/dL (31.6-35.5); Mean Corpuscular Hemoglobin 31.7 pg (28.0-33.3); Mean Corpuscular Volume 95.7 fL (83.0-100.0); Mean Platelet Volume 11.3 fL (9.4-12.4); Monocytes # 0.7 K/mcL (0.0-1.3); Monocytes % 10.4 %; Neutrophils # 3.3 K/mcL (1.6-8.9); Platelet Count 228 K/mcL (140-400); Red Blood Count 3.91 M/mcL (3.82-4.97); Red Cell Distribution Width 12.4 % (11.5-14.5); Segmented Neutrophils % 47.4 %; White Blood Count 6.9 K/mcL (4.3-11.1)
[2021-04-23 09:01] LABS: Alanine Aminotransferase 8 Units/L (7-52); Albumin 4.1 g/dL (3.5-5.7); Albumin/Globulin Ratio 1.7 (1.1-2.2); Alkaline Phosphatase 69 Units/L (34-104); Aspartate Amino Transferase 16 Units/L (13-39); BUN/Creatinine Ratio 19 (6-26); Bilirubin,Total 0.4 mg/dL (0.3-1.0); Blood Urea Nitrogen 13 mg/dL (6-20); Calcium 9.4 mg/dL (8.6-10.3); Carbon Dioxide 25 mEq/L (23-29); Chloride 107 mEq/L (98-107); Globulin 2.4 g/dL (2.4-3.5); Glucose 83 mg/dL (70-105); Magnesium 2.1 mg/dL (1.6-2.6); Osmolality,Calculated 287 (280-300); Phosphorous 3.8 mg/dL (2.7-4.5); Potassium 3.9 mEq/L (3.5-5.1); Sodium 139 mEq/L (136-145); Total Protein 6.5 g/dL (6.4-8.9); eGFR For African Americans > 60 (> 60); eGFR For Non-African Americans > 60 (> 60)
[2021-04-23 09:07] LABS: % Iron Saturation 15 % (15-50); Iron 56 mcg/dL (50-170); Transferrin 268 mg/dL (203-362)
[2021-04-23 09:19] LABS: Ferritin 71 ng/mL (10-120)
[2021-04-23] MEDS: haloperidoL 5 MG TABLET PO SCH ×3 (09:22→20:31)
[2021-04-23] MEDS: AUSTEDO 6 MG PO SCH ×2 (09:22→20:32)
[2021-04-23] MEDS: FLUoxetine 20 MG CAPSULE PO SCH (09:22)
[2021-04-23] MEDS ORDERED: Iron Sucrose Complex 400 MG in 0.9 % Sodium Chloride 250 ML IVPB ONE (14:22)
[2021-04-23] MEDS: Ondansetron 4 MG/2 ML VIAL IVP PRN (18:19)
[2021-04-23] MEDS: clonazePAM 0.5 MG TABLET PO SCH (20:31)
[2021-04-23] MEDS: Divalproex (24 HR) 500 MG TABLET PO SCH (20:31)
[2021-04-23] MEDS: RisperiDAL 3 MG TABLET PO SCH (20:31)
[2021-04-23] MEDS: Melatonin 3 MG TABLET PO SCH (20:31)
[2021-04-24] MEDS ORDERED: Acetaminophen IV 1,000 MG/100 ML BAG IVPB ONE (05:28)
[2021-04-24] MEDS: haloperidoL 5 MG TABLET PO SCH ×3 (07:08→20:45)
[2021-04-24] MEDS: FLUoxetine 20 MG CAPSULE PO SCH (07:08)
[2021-04-24] MEDS: Multivitamin Liquid 15 ML UDC PO SCH (07:09)
[2021-04-24] MEDS: cefTRIAXone 1,000 MG in Water for inj. (sterile) 10 ML IVP SCH (07:09)
[2021-04-24] MEDS: AUSTEDO 6 MG PO SCH ×2 (07:10→20:47)
[2021-04-24 09:50] LABS: Basophils % 0.5 %; Eosinophils % 0.2 %; Hematocrit 32.6 % (35.3-44.9); Hemoglobin 11.2 g/dL (11.5-15.4); Immature Granulocytes % 0.9 % (0-4); Lymphocytes # 1.3 K/mcL (0.6-4.6); Lymphocytes % 21.8 %; Mean Corpuscular HGB Conc 34.4 g/dL (31.6-35.5); Mean Corpuscular Hemoglobin 32.1 pg (28.0-33.3); Mean Corpuscular Volume 93.4 fL (83.0-100.0); Monocytes # 0.5 K/mcL (0.0-1.3); Monocytes % 8.9 %; Platelet Count 182 K/mcL (140-400); Red Blood Count 3.49 M/mcL (3.82-4.97); Red Cell Distribution Width 12.4 % (11.5-14.5); Segmented Neutrophils % 67.7 %; White Blood Count 5.9 K/mcL (4.3-11.1)
[2021-04-24 10:04] LABS: Alanine Aminotransferase 7 Units/L (7-52); Albumin 3.7 g/dL (3.5-5.7); Albumin/Globulin Ratio 1.7 (1.1-2.2); Alkaline Phosphatase 63 Units/L (34-104); Aspartate Amino Transferase 14 Units/L (13-39); BUN/Creatinine Ratio 19 (6-26); Bilirubin,Total 0.3 mg/dL (0.3-1.0); Blood Urea Nitrogen 13 mg/dL (6-20); Calcium 8.8 mg/dL (8.6-10.3); Carbon Dioxide 21 mEq/L (23-29); Chloride 106 mEq/L (98-107); Globulin 2.2 g/dL (2.4-3.5); Glucose 90 mg/dL (70-105); Osmolality,Calculated 282 (280-300); Phosphorous 3.6 mg/dL (2.7-4.5); Potassium 3.4 mEq/L (3.5-5.1); Sodium 136 mEq/L (136-145); Total Protein 5.9 g/dL (6.4-8.9); eGFR For African Americans > 60 (> 60); eGFR For Non-African Americans > 60 (> 60)
[2021-04-24] MEDS: Ondansetron 4 MG/2 ML VIAL IVP PRN (12:22)
[2021-04-24] MEDS ORDERED: Potassium Chloride 20 MEQ, Lidocaine 1% 2 ML in 0.9 % Sodium Chloride 250 ML IVPB ONE (14:42)
[2021-04-24] MEDS: Divalproex (24 HR) 500 MG TABLET PO SCH (20:45)
[2021-04-24] MEDS: RisperiDAL 3 MG TABLET PO SCH (20:46)
[2021-04-24] MEDS: Melatonin 3 MG TABLET PO SCH (20:46)
[2021-04-24] MEDS: clonazePAM 0.5 MG TABLET PO SCH (20:46)
[2021-04-25] MEDS: AUSTEDO 6 MG PO SCH ×2 (08:31→20:54)
[2021-04-25] MEDS: Multivitamin Liquid 15 ML UDC PO SCH (08:31)
[2021-04-25] MEDS: FLUoxetine 20 MG CAPSULE PO SCH (08:32)
[2021-04-25] MEDS: haloperidoL 5 MG TABLET PO SCH ×3 (08:32→20:53)
[2021-04-25] MEDS: cefTRIAXone 1,000 MG in Water for inj. (sterile) 10 ML IVP SCH (08:33)
[2021-04-25] MEDS ORDERED: Acetaminophen IV 500 MG/50 ML BAG IVPB ONE (08:50)
[2021-04-25 09:05] LABS: Hematocrit 34.8 % (35.3-44.9); Hemoglobin 11.4 g/dL (11.5-15.4); Mean Corpuscular HGB Conc 32.8 g/dL (31.6-35.5); Mean Corpuscular Hemoglobin 31.1 pg (28.0-33.3); Mean Corpuscular Volume 95.1 fL (83.0-100.0); Mean Platelet Volume 10.9 fL (9.4-12.4); Platelet Count 160 K/mcL (140-400); Red Blood Count 3.66 M/mcL (3.82-4.97); Red Cell Distribution Width 12.4 % (11.5-14.5); White Blood Count 5.5 K/mcL (4.3-11.1)
[2021-04-25 09:25] LABS: BUN/Creatinine Ratio 13 (6-26); Blood Urea Nitrogen 10 mg/dL (6-20); Calcium 8.6 mg/dL (8.6-10.3); Carbon Dioxide 20 mEq/L (23-29); Chloride 105 mEq/L (98-107); Glucose 113 mg/dL (70-105); Osmolality,Calculated 282 (280-300); Potassium 3.9 mEq/L (3.5-5.1); Sodium 136 mEq/L (136-145); eGFR For African Americans > 60 (> 60); eGFR For Non-African Americans > 60 (> 60)
[2021-04-25] MEDS ORDERED: Ergocalciferol (VIT D2) 50,000 UNIT (1.25MG) CAP PO SCH (09:56)
[2021-04-25] MEDS: Divalproex (24 HR) 500 MG TABLET PO SCH (20:52)
[2021-04-25] MEDS: Melatonin 3 MG TABLET PO SCH (20:53)
[2021-04-25] MEDS: clonazePAM 0.5 MG TABLET PO SCH (20:53)
[2021-04-25] MEDS: RisperiDAL 3 MG TABLET PO SCH (20:53)
[2021-04-26 05:28] LABS: Hemoglobin 11.4 g/dL (11.5-15.4); Mean Corpuscular HGB Conc 32.6 g/dL (31.6-35.5); Mean Corpuscular Hemoglobin 30.9 pg (28.0-33.3); Mean Corpuscular Volume 94.9 fL (83.0-100.0); Mean Platelet Volume 11.3 fL (9.4-12.4); Platelet Count 189 K/mcL (140-400); Red Blood Count 3.69 M/mcL (3.82-4.97); Red Cell Distribution Width 12.4 % (11.5-14.5); White Blood Count 7.8 K/mcL (4.3-11.1)
[2021-04-26 05:48] LABS: BUN/Creatinine Ratio 18 (6-26); Blood Urea Nitrogen 12 mg/dL (6-20); Calcium 8.8 mg/dL (8.6-10.3); Carbon Dioxide 23 mEq/L (23-29); Chloride 107 mEq/L (98-107); Glucose 86 mg/dL (70-105); Magnesium 2.1 mg/dL (1.6-2.6); Osmolality,Calculated 285 (280-300); Phosphorous 3.8 mg/dL (2.7-4.5); Potassium 3.7 mEq/L (3.5-5.1); Sodium 138 mEq/L (136-145); eGFR For African Americans > 60 (> 60); eGFR For Non-African Americans > 60 (> 60)
[2021-04-26] MEDS: haloperidoL 5 MG TABLET PO SCH ×2 (08:00→13:50)
[2021-04-26] MEDS: cefTRIAXone 1,000 MG in Water for inj. (sterile) 10 ML IVP SCH (08:01)
[2021-04-26] MEDS: FLUoxetine 20 MG CAPSULE PO SCH (08:01)
[2021-04-26] MEDS: Multivitamin Liquid 15 ML UDC PO SCH (08:01)
[2021-04-26] MEDS: AUSTEDO 6 MG PO SCH (08:02)
[2021-04-26 08:29] VITALS: BP 99/67
[2021-04-26] MEDS ORDERED: *HR* OxyCODONE/APAP 5/325 TABLET PO ONE (08:41)
[2021-04-26 14:09] LABS: Adenovirus Not Detected (Not Detect); Coronavirus 229E Not Detected (Not Detect); Coronavirus HKU1 Not Detected (Not Detect); Coronavirus NL63 Not Detected (Not Detect); Coronavirus OC43 Not Detected (Not Detect); Human Metapneumovirus Not Detected (Not Detect); Human Rhinovirus/Enterovirus Not Detected (Not Detect); Influenza A Subtype 2009 H1 Not Detected (Not Detect); SARS-CoV-2 Not Detected (Not Detect)
[2021-04-26 14:10] LABS: Bordetella Pertussis Not Detected (Not Detect); Chlamydophila pneumoniae Not Detected (Not Detect); Influenza B Not Detected (Not Detect); Mycoplasma pneumoniae Not Detected (Not Detect); Parainfluenza Virus 1 Not Detected (Not Detect); Parainfluenza Virus 2 Not Detected (Not Detect); Parainfluenza Virus 3 Not Detected (Not Detect); Parainfluenza Virus 4 Not Detected (Not Detect); Respiratory Syncytial Virus Not Detected (Not Detect)
== END 2021-04-26 15:17 | DRG 42 ==
LOC: 3ANU → SUATTDRO 12:56
PROVIDERS: ADMIT Internal Medicine; ATTEND Internal Medicine